=== PATIENT | male | born 1940 | race Caucasian/White ===

== ENCOUNTER 2018-05-27 10:43 | Inpatient (IN) | payer OTHER ==
[2018-05-27] VITALS (12 sets, daily range): BP systolic 113–162; BP diastolic 71–119; PULSE 81–102; RESP 16–28; Ht 170.2 cm; Wt 83.5 kg
[~2018-05-27] VITALS: Ht 170.2 cm; Wt 83.5 kg
--- NOTE | 2018-05-27 12:39 | ERD ---
ER Documentation Chief Complaint Chief Complaint PT HERE WITH SOB, SENT PER PMD FOR EVAL HPI 77-year-old male referred to the emergency department from his pest controller assistant for evaluation of a pericardial effusion. Patient was seen initially in an outside urgent care for shortness of breath where he had a chest x-ray done demonstrating a large heart. He followed up with a local pest controller assistant who demonstrated he had a significant pericardial effusion. He was then referred immediately to the emergency department for further evaluation. Upon arrival, he denies any fevers, chills or chest pain. He reports shortness of breath with dyspnea on exertion and a feeling of early fatigue recently. ROS All systems reviewed and are negative except as per history of present illness. PMhx/Soc History of Surgery: Yes (BACK SURGERY, HERNIA REPAIR) Hx Cardiac Disorders: Yes (HTN, CHOLESTEROL) Hx Psychiatric Problems: No Hx Miscellaneous Medical Probl: No Hx Alcohol Use: No Hx Substance Use: No Hx Tobacco Use: No Smoking Status: Former smoker Physical Exam Vitals Vital Signs Date Temp Pulse Resp B/P (MAP) Pulse Ox O2 O2 Flow FiO2 Time Delivery Rate 05/27/18 Nasal 2.0 11:16 Cannula 05/27/18 96.7 98 20 163/94 96 10:45 (117) Physical Exam GENERAL: The patient is well developed and appropriate for usual state of health in no apparent distress HEENT: Pupils equal, round, and reactive to light. EOMI. There is no scleral icterus. NECK: C-spine is soft and supple, there is no meningismus. There is no cervical lymphadenopathy. LUNGS: Clear to auscultation bilaterally. There are no rales, wheezes or rhonchi. HEART: Regular rate and rhythm, no murmurs, clicks, rubs or gallops. ABDOMEN: Soft, non-tender, non-distended. There are bowel sounds in all four quadrants. No rebound or guarding. EXTREMITIES: There is no peripheral cyanosis or edema. No focal swelling or erythema. NEURO: The patient moves all four extremities with 5/5 strength. Cranial nerves II - XII are intact. Normal gait. Alert and oriented SKIN: There is no apparent rash or petechiae. HEME/LYMPHATIC: There is no evidence of excessive bruising or lymphedema. PSYCHIATRIC: The patient does not appear anxious or depressed. Result Diagram: 05/27/18 1106 05/27/18 1106 Results 24 hrs Laboratory Tests Test 05/27/18 11:06 White Blood Count 8.0 10^3/ul Red Blood Count 4.26 10^6/ul Hemoglobin 11.9 g/dl Hematocrit 37.5 % Mean Corpuscular Volume 88.0 fl Mean Corpuscular Hemoglobin 27.9 pg Mean Corpuscular Hemoglobin Concent 31.7 g/dl Red Cell Distribution Width 13.8 % Platelet Count 544 10^3/UL Mean Platelet Volume 9.5 fl Immature Granulocytes % 0.600 % Neutrophils % 83.0 % Lymphocytes % 7.6 % Monocytes % 8.6 % Eosinophils % 0.0 % Basophils % 0.2 % Nucleated Red Blood Cells % 0.0 /100WBC Immature Granulocytes # 0.050 10^3/ul Neutrophils # 6.7 10^3/ul Lymphocytes # 0.6 10^3/ul Monocytes # 0.7 10^3/ul Eosinophils # 0.0 10^3/ul Basophils # 0.0 10^3/ul Nucleated Red Blood Cells # 0.0 10^3/ul Sodium Level 138 mmol/L Potassium Level 4.8 mmol/L Chloride Level 104 mmol/L Carbon Dioxide Level 21 mmol/L Anion Gap 13 Blood Urea Nitrogen 28 mg/dl Creatinine 1.21 mg/dl Est Glomerular Filtrat Rate mL/min mL/min Glucose Level 134 mg/dl Calcium Level 8.7 mg/dl Troponin I < 0.012 ng/ml Procedures/MDM Patient was taken to a room, seen and evaluated. Comfort measures were initiated. Diagnostic tests were ordered and reviewed. 3 LEAD RHYTHM STRIP: Normal sinus rhythm without ectopy EK lead EKG reviewed by myself: Normal Sinus Rhythm with what appears to be an early electrical alternans Normal [place] and intervals, low voltages No ST elevation, depression, or T wave inversion, nonspecific ST and T wave changes without ST elevation Impression: Consistent with the pericardial effusion RADIOLOGY: Reviewed with the radiologist CONSULTATION: Hospitalist was notified for admission. Cardiology consultation was at bedside REEVALUATION: Diagnostic tests were appreciated. Patient remained hemodynamic is stable without any indications of cardiac tamponade MEDICAL DECISION MAKIN-year-old male presents the emergency department with shortness of breath and a newly diagnosed pericardial effusion. Patient has no indications of hypotension or shock and appears to be appropriate for his inpatient bed at this time. Departure Diagnosis: Primary Impression: Pericardial effusion Condition: CARINE Calvillo May 27, 2018 12:39
[2018-05-27] MEDS ORDERED: FENTAnyl 50 MCG/ML VIAL ONE (12:53)
--- NOTE | 2018-05-27 12:53 | QN ---
Documentation Comment H Garima carlos . KAYDEN DUEÑAS May 27, 2018 12:53
[2018-05-27] MEDS ORDERED: SOD CHLORIDE 0.9% 1,000 ML ONE (12:57)
--- NOTE | 2018-05-27 12:59 | CONS ---
Assessment/Plan Assessment/Plan Hospital Course (Demo Recall) Pericardial effusion: large by echo with pre-tamponade physiology. Significant symptoms. ?viral pericarditis vs malignant at his age. Plan for diagnostic and therapeutic pericardiocentesis. 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 He had a prior CXR showing severe cardiomegaly and in my office EKG shows low voltage and echo showed a large pericardial effusion with pre-tamponade physiology. No clinical tamponade. He was referred for admission and pericardiocentesis. No known malignancy or recent viral infection.No chest pain per hPI Past Medical History per hPI Allergies: Coded Allergies: No Known Allergy (Unverified , 05/27/18) Social History Smoking Status: Former smoker Exam/Review of Systems Exam Vitals Vital Signs Date Temp Pulse Resp B/P (MAP) Pulse Ox O2 O2 Flow FiO2 Time Delivery Rate 05/27/18 Nasal 2.0 11:16 Cannula 05/27/18 96.7 98 20 163/94 96 10:45 (117) Constitutional: alert, oriented, distress (mild) Head: normocephalic, atraumatic Neck: supple, jvd (angle of jaw) Respiratory: crackles/rales, wheezing; No clear to auscultation Cardiovascular: regular rate and rhythm, edema (1+) Gastrointestinal: soft, non-tender; No distended Neurological: nl mental status, nl speech Results Result Diagram: 05/27/18 1106 05/27/18 1106 Results 24hrs Laboratory Tests Test 05/27/18 11:06 White Blood Count 8.0 Red Blood Count 4.26 L Hemoglobin 11.9 L Hematocrit 37.5 L Mean Corpuscular Volume 88.0 Mean Corpuscular Hemoglobin 27.9 L Mean Corpuscular Hemoglobin Concent 31.7 L Red Cell Distribution Width 13.8 Platelet Count 544 H Mean Platelet Volume 9.5 Immature Granulocytes % 0.600 H Neutrophils % 83.0 H Lymphocytes % 7.6 L Monocytes % 8.6 Eosinophils % 0.0 Basophils % 0.2 Nucleated Red Blood Cells % 0.0 Immature Granulocytes # 0.050 H Neutrophils # 6.7 Lymphocytes # 0.6 L Monocytes # 0.7 Eosinophils # 0.0 Basophils # 0.0 Nucleated Red Blood Cells # 0.0 Sodium Level 138 Potassium Level 4.8 Chloride Level 104 Carbon Dioxide Level 21 Anion Gap 13 Blood Urea Nitrogen 28 H Creatinine 1.21 Est Glomerular Filtrat Rate mL/min Glucose Level 134 Calcium Level 8.7 Troponin I < 0.012 JAYME CEVALLOS May 27, 2018 12:59
[2018-05-27] MEDS ORDERED: ALBUTEROL 0.083% (NEB) 2.5 MG/3 ML AMP HHN STA (13:11)
[2018-05-27] MEDS ORDERED: LIDOCAINE 1% (MDV) 20 ML INJ ONE (13:23)
[2018-05-27] MEDS ORDERED: MIDAZOLAM 1 MG/ML 2 ML INJ ONE (13:23)
[2018-05-27] MEDS ORDERED: NITROGLYCERIN (SL) 0.4 MG TAB SL PRN (13:30)
[2018-05-27] MEDS ORDERED: ACETAMINOPHEN 325 MG TAB PO PRN (13:30)
[2018-05-27] MEDS ORDERED: ONDANSETRON 4 MG INJ IV PRN (13:30)
[2018-05-27] MEDS ORDERED: LORAZEPAM 0.5 MG TAB PO PRN (13:30)
[2018-05-27] MEDS ORDERED: ZOLPIDEM 5 MG TAB PO PRN (13:30)
--- NOTE | 2018-05-27 13:42 | HP ---
DATE OF ADMISSION: 05/27/2018 INDICATIONS FOR EVALUATION: The patient is being admitted for placement of pericardial window for pericardial effusion. HISTORY OF PRESENTING COMPLAINT: Mr. Middleton is a very pleasant 77-year-old male with a past medical history of high blood pressure, prediabetes and GERD, who has been having worsening dyspnea on exertion, shortness of breath and cough and his family also notices voice changes over the last 3 weeks. The patient also has a history of asthma and actually feels like it is happening the bronchitis episodes right now. 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 He went into see the on site property manager yesterday, Dr. Humphries and then 2D echo was done at that time with concerns for pericardial effusion, so the patient was requested to come to the emergency room for placement of emergent pericardial window. The procedure is already scheduled today between 1:00 and 2:00 p.m. The patient is being admitted for this reason. He however denies fever. He has been having a lot of cough that is occasional productive of whitish sputum. He denies chest pain at this time. Denies passing out episodes. No extremity swelling. No dizziness. There is no abdominal pain, no nausea or vomiting. Last bowel movement was this morning without blood and was not black and per patient, it was normal. He also denies dysuria or hematuria. REVIEW OF SYSTEMS: A 12-point review of system was done. Pertinent findings are as noted above. HOME MEDICATIONS: The patient takes: 1. Omeprazole 20 mg daily. 2. Ranitidine 150 mg twice a day. 3. Amlodipine 10 mg p.o. daily. 4. Losartan 100 mg twice a day. 5. Allopurinol half a tablet 150 mg per day. 6. Vitamin D3 one tablet daily. 7. Currently, he is treating himself with prophylaxis antibiotics. SOCIAL HISTORY: The patient remotely smoked as a youth, but does not smoke cigarettes in more than 20 years. Denies alcohol or illicit drug use. FAMILY HISTORY: Noncontributory. PAST SURGICAL HISTORY: Includes back surgery as well as hernia repair. 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 PHYSICAL EXAMINATION VITAL SIGNS: Temperature 96.7, pulse is 98, respiratory rate 20, blood pressure 163/94, saturations are 96%. The patient is on oxygen via nasal cannula at 2 liters per minute. GENERAL: He is alert and oriented. Currently, he is in no distress. He does have coughing bouts; however during the evaluation, he is able to give me a full history. HEENT: Head is normocephalic. Pupils are equal, round and reactive. There is no conjunctival pallor, but I do have concern for mild scleral icterus. Otherwise mucous membranes are moist. Posterior pharynx clear of erythema or exudate. NECK: Supple, but seems to have mildly distended neck veins bilaterally, but there is no JVD. CHEST: He does have audible wheezing and also wheezing in the bases bilaterally. There has however had no crackles and I cannot fully ascertain any pericardial effusion. HEART: Sounds are S1 and S2. ABDOMEN: Soft, protuberant but nontender with normoactive bowel sounds. EXTREMITIES: There is no lower extremity edema. NEUROLOGIC: He is able to move all 4 extremities without deficit. SKIN: Devoid of rash or jaundice. PSYCHIATRIC: Cooperative with exam. LABORATORY VALUES: White count is normal, hemoglobin 11.9 with hypochromasia and platelet count is high at 544. He does have a neutrophil predominance. BMP and troponin levels are still pending. DIAGNOSTIC DATA: Chest x-ray has also been done, but the imaging and reports are also still pending at this time. ASSESSMENT: A 77-year-old male who was admitted after being referred from the cardiology's office as an outpatient concerning for pericardial window after he was diagnosed as outpatient with pericardial effusion. He is being managed as follows: 1. Shortness of breath with exertion likely secondary to multiple factors summarized below. 2. Pericardial effusion: Plan for pericardial window today, cause uncertain at this time. 3. Mild asthma exacerbation, rule out ongoing bronchitis. 4. Chronic hypertension with suboptimal control. 5. Prediabetes with last hemoglobin A1c per patient's report of 6.5. 6. History of gastroesophageal reflux disease. 7. Hypochromic microcytic anemia. 8. Thrombocytosis, likely reactive. 9. History of gout, on allopurinol. PLAN OF CARE: At this time, the patient will be further worked up as we planned with pericardial window. As mentioned earlier, cardiology has scheduled this procedure for today between 1:00 and 2:00 p.m. The patient will be kept n.p.o. for now. We will follow up on chest x-ray and follow up on the rest of his labs. We will give bronchodilator therapy and consider continuing his antibiotics from home for possible bronchitis. We will also resume rest of his home medications and titrate in-house for better control. He will be placed on an 1800-calorie diet and sliding scale insulin . Further interventions will depend on his overall clinical course. It has been discussed with the patient in details. Questions have been answered. I have also spoken extensively with the family. For further clarification and information, please review the patient's chart. Dictated By: KAYDEN DUEÑAS MD BA/NTS Conf#: [id number] DID#: [id number] CC: CARINE WORKMAN;*EndCC* MTDD
--- NOTE | 2018-05-27 14:44 | OPR ---
Date/Time of Note Date/Time of Note DATE: 05/27/18 TIME: 14:34 Operative Report Preoperative Diagnosis pericardial effusion/tamponade Postoperative Diagnosis same Operation/Procedure Performed Pericardiocentesis Surgeon see signature line Winder Tender none Anesthesia Type: moderate sedation Estimated Blood Loss: minimal Transfusion none Specimen 900 mL serosanguineous fluid to be sent for studies Grafts/Implants none Complications none Procedure Description Pericardiocentesis: After informed consent, the patient was prepped and draped per usual. 5 mL of lidocaine was infused into the left chest wall. Under ultrasound guidance, the needle was inserted under back pressure. Once fluid was obtained, the J wire was advanced. Location was confirmed by both echo and fluoroscopy. Next the tract was dilated and the pigtail catheter inserted. 900 mL serosanguinous fluid was obtained and sent for appropriate studies. Echo showed significant improvement in the amount of fluid. The drain was sutured in place. JAYME CEVALLOS May 27, 2018 14:44
--- NOTE | 2018-05-27 14:57 | RADRPT ---
Echocardiogram Report Patient Name: MJ GUOPatient ID: [id number] : [id number] (77y 8m)Study Date: 05/27/2018 1:17:18 PM Gender: MAccession #: [id number] Tech: Mukul Fink RDCS Location: [facility] Ref.Physician: MARCUS HUMPHRIES Height(Cm): BSA: Weight(Kg): Quality: AdequateAccount #: Procedures: Echocardiographic Report: Transthoracic echocardiogram examination. Indications: Pericardial Effusion. Findings: Left Ventricle: The left ventricular ejection fraction is visually estimated at 65 %. Pericardium: Trivial effusion. IVC: Dilated inferior vena cava with no respiratory collapse. Conclusions: Pre-pericardiocentesis, large pericardial effusion. Wire in proper location during. Agitated saline confirms proper placement. Post drainage, small posterior effusion. The left ventricular ejection fraction is visually estimated at 65 %. Electronically Signed By: Marcus Humphries 2018-05-27 14:56:15 PST
--- NOTE | 2018-05-27 15:02 | RADRPT ---
Echocardiogram Report Patient Name: MJ GUOPatient ID: [id number] : [id number] (77y 8m)Study Date: 05/27/2018 12:40:33 PM Gender: MAccession #: [id number] Tech: Silverio Deleon [facility] Location: [facility] Ref.Physician: JAYME HUMPHRIES Height(Cm): BSA: Weight(Kg): Quality: AdequateAccount #: Procedures: Echocardiographic Report: Transthoracic echocardiogram with complete 2D, M-Mode, and doppler examination. Indications: Pericardial Effusion. Measurements: 2D/M Mode Doppler Measurement Value Normal Range Measurement Value Normal Range LVIDd 2D 5.2 [ 4.2 - 5.8 ] cm AV Peak Derek 1.1 [ 100.0 - 170.0 ] cm/sec LVIDs 2D 3.5 [ 2.5 - 4.0 ] cm AV Peak PG 5.0 [ 2.0 - 9.0 ] mmHg LVPWd 2D 1.1 [ 0.6 - 1.0 ] cm LVOT Peak Derek 1.0 [ 70.0 - 110.0 ] cm/sec IVSd 2D 1.4 [ 0.6 - 1.0 ] cm LVOT Peak PG 4.0 [ 2.0 - 6.0 ] mmHg IVS/LVPW 2D 1.3 ratio MV E Peak Derek 0.6 [ 60.0 - 130.0 ] cm/sec AoR Diam 2D 2.9 [ 2.6 - 3.4 ] cm MV A Peak Derek 0.9 [ 100.0 - 120.0 ] cm/sec LA/Ao 2D 2 ratio MV E/A 0.7 [ 0.8 - 1.5 ] ratio LA Dimen 2D 4.4 [ 3.0 - 4.0 ] cm MV Decel Time 173 [ 104 - 258 ] msec Lat E` Derek 0.1 [ 10.0 - 15.0 ] cm/sec Med E` Derek 0.0 cm/sec MV E/A 0.7 [ 0.8 - 1.5 ] ratio TR Peak Derek 2.7 [ 100.0 - 280.0 ] cm/sec TR Peak PG 30.0 mmHg RVSP 38.0 [ 10.0 - 36.0 ] mmHg Findings: Left Ventricle: Normal left ventricular systolic function. Normal left ventricular cavity size. Normal left ventricular wall thickness. Ejection fraction is visually estimated at 60 %. Tissue Doppler/Mitral Doppler indices are consistent with impaired relaxation (Stage I diastolic dysfunction). Right Ventricle: Normal right ventricular systolic function. Mild enlargement of right ventricle. Left Atrium: There is mild enlargement of left atrium. Right Atrium: The right atrium is normal in size. Mitral Valve: Mild mitral leaflet calcification. Mild mitral annular calcification. Trace mitral regurgitation. Aortic Valve: Normal appearance of the aortic valve. No significant aortic stenosis or insufficiency. Tricuspid Valve: Normal appearance of the tricuspid valve. Estimated peak PA systolic pressure 45 mmHg. There is mild tricuspid regurgitation. Pulmonic Valve: Pulmonic valve not well visualized. Pericardium: Large pericardial effusion. Early right ventricular diastolic collapse consistent with tamponade. Aorta: Normal aortic root. IVC: Dilated IVC without respiratory collapse consistent with elevated right atrial pressure. Conclusions: Large pericardial effusion. Early right ventricular diastolic collapse consistent with tamponade. Normal left ventricular systolic function. Normal left ventricular cavity size. Normal left ventricular wall thickness. Ejection fraction is visually estimated at 60 %. Tissue Doppler/Mitral Doppler indices are consistent with impaired relaxation (Stage I diastolic dysfunction). No significant valvular stenosis or regurgitation seen. Estimated peak PA systolic pressure 45 mmHg. Dilated IVC without respiratory collapse consistent with elevated right atrial pressure. Electronically Signed By: Jamye Humphries 2018-05-27 15:02:00 PST
[2018-05-27] MEDS: CEFTRIAXONE 1 GM/50 ML (PMX) 50 ML IVPB SCH (16:32)
[2018-05-27] MEDS: DOCUSATE SODIUM 100 MG CAP PO SCH (16:32)
[2018-05-27] MEDS: AZITHROMYCIN 500MG/NS (PMX) 250 ML IVPB SCH (16:32)
[2018-05-27] MEDS: morphine 2 MG INJ IV PRN ×2 (18:14→23:21)
[2018-05-27] MEDS: COLCHICINE 0.6 MG TAB PO SCH (21:04)
[2018-05-27] MEDS ORDERED: IODIXANOL LOCM 100 ML BTL ONE (22:06)
[2018-05-27] MEDS ORDERED: SOD CHLORIDE 0.9% 100 ML ONE (22:06)
[2018-05-27] MEDS ORDERED: ENALAPRILAT 1.25 MG INJ IV PRN (23:00)
[2018-05-27] MEDS: ALBUTEROL 0.083% (NEB) 2.5 MG/3 ML AMP HHN PRN (23:02)
[2018-05-28] VITALS (24 sets, daily range): BP systolic 99–165; BP diastolic 66–134; PULSE 75–116; RESP 19–31
[2018-05-28] MEDS: DOCUSATE SODIUM 100 MG CAP PO SCH ×3 (01:30→20:56)
[2018-05-28] MEDS: ALBUTEROL 0.083% (NEB) 2.5 MG/3 ML AMP HHN PRN ×2 (01:44→15:25)
[2018-05-28] MEDS ORDERED: METHYLPREDNISOLONE 40 MG INJ IV SCH (06:00)
[2018-05-28] MEDS: LOSARTAN 50 MG TAB PO SCH (08:39)
[2018-05-28] MEDS: COLCHICINE 0.6 MG TAB PO SCH ×2 (08:39→20:48)
[2018-05-28] MEDS: CHOLECALCIFEROL 1,000 UNIT TAB PO SCH (08:39)
[2018-05-28] MEDS: AMLODIPINE 10 MG TAB PO SCH (08:39)
[2018-05-28] MEDS ORDERED: ASPIRIN 81 MG TAB PO SCH (09:00)
[2018-05-28] MEDS ORDERED: INFLUENZA VIRUS VACCINE 0.5 ML (DISPENSING) IM* ONE (09:00)
--- NOTE | 2018-05-28 09:20 | PN ---
Date/Time of Note Date/Time of Note DATE: 05/28/18 TIME: 09:07 Assessment/Plan VTE Prophylaxis Risk score (from Ns)>0 risk: 9 SCD applied (from Ns): Yes Pharmacological prophylaxis: NA/contraindicated Pharm contraindication: surgical contra Lines/Catheters IV [facility]ter Type (from [facility]): Peripheral IV Urinary Cath still in place: No Assessment/Plan Hospital Course S: observed in ICU, no new complaints, SOB imporoved, was eating breakfast without problems O : General: A&O x3, answering questions appropriately, no distress HEENT: NC/ AT. PERRL. EOM intact Neck: supple Chest : clean linear dressing L chest wall with drain to almost empty bag with minimal blood CVS: S1, S2, RRR. no murmurs. Lungs: diminished on the L side, but no more wheezing Abd: soft, nontender, +BS Ext: moving all extremities, no edema skin: no rashes assessment and plan: A 77-year-old male who was admitted after being referred from the cardiology's office as an outpatient for management of pericardial effusion after he had presented with SOB on exertion and at rest He is being managed as follows: 1. Shortness of breath with exertion likely secondary to multiple factors summarized below. -improved ? 2. Pericardial effusion / tamponade 2./2 pericarditis? subacute vs chronic ?: -s/p pericardial window 05/28/18 -cause still under evaluation, TSH wnl, patient did not have significant chest pain, no fever or EKG changes -fluid sent to lab for analysis and cytology -continues on colchine BID -chest CT also pending 3. Mild asthma exacerbation, rule out ongoing bronchitis. -improving -has been requiring PRN bronchodilator, will give scheduled course and add steroids 4. Chronic hypertension -fair control on current regimen -monitor and titrate as indicated 5. Prediabetes with last hemoglobin A1c 6.8. -continue carb controlled diet -add SSI 6. History of gastroesophageal reflux disease. -continue home meds 7. Hypochromic microcytic anemia. -monitoring 8. Thrombocytosis, likely reactive. -improved 9. History of gout, on allopurinol. -uric acid <7, -continue home meds Result Diagram: 05/28/18 0441 05/28/18 0441 Results 24hrs Laboratory Tests Test 3/6/19 11:06 05/27/18 14:00 05/28/18 04:41 White Blood Count 8.0 8.3 Red Blood Count 4.26 L 4.83 Hemoglobin 11.9 L 13.5 L Hematocrit 37.5 L 41.2 L Mean Corpuscular Volume 88.0 85.3 Mean Corpuscular Hemoglobin 27.9 L 28.0 L Mean Corpuscular 31.7 L 32.8 Hemoglobin Concent Red Cell Distribution Width 13.8 13.7 Platelet Count 544 H 409 # Mean Platelet Volume 9.5 10.7 H Immature Granulocytes % 0.600 H 0.700 H Neutrophils % 83.0 H 78.1 H Lymphocytes % 7.6 L 9.8 L Monocytes % 8.6 10.1 Eosinophils % 0.0 0.6 Basophils % 0.2 0.7 Nucleated Red Blood Cells % 0.0 0.0 Immature Granulocytes # 0.050 H 0.060 H Neutrophils # 6.7 6.5 Lymphocytes # 0.6 L 0.8 Monocytes # 0.7 0.8 Eosinophils # 0.0 0.1 Basophils # 0.0 0.1 Nucleated Red Blood Cells # 0.0 0.0 Sodium Level 138 138 Potassium Level 4.8 4.0 Chloride Level 104 104 Carbon Dioxide Level 21 25 Anion Gap 13 9 Blood Urea Nitrogen 28 H 20 Creatinine 1.21 1.07 Est Glomerular Filtrat Rate mL/min Glucose Level 134 154 Uric Acid 6.5 Calcium Level 8.7 8.5 Troponin I < 0.012 Body Fluid Type PERICARDIAL FLUID Body Fluid Volume 1000.0 Body Fluid Color RED Body Fluid Appearance BLOODY Body Fluid WBC 2042 Body Fluid RBC (Auto) 2907939 Body Fluid Polynuclear WBCs (%) 33.6 Body Fluid Mononuclear Cells % 66.4 Auto Body Fluid Glucose 104 Body Fluid Total Protein 6.2 Body Fluid Lactate Dehydrogenase 7352 Hemoglobin A1c 6.8 H Magnesium Level 2.1 Triglycerides Level 135 Cholesterol Level 144 LDL Cholesterol, Calculated 95 HDL Cholesterol 22 L Cholesterol/HDL Ratio 6.5 Vitamin D 1,25-Dihydroxy 50.3 Thyroid Stimulating Hormone (TSH) 2.050 Exam/Review of Systems Exam Vitals Vital Signs Date Temp Pulse Resp B/P (MAP) Pulse Ox O2 O2 Flow FiO2 Time Delivery Rate 05/28/18 87 23 152/93 98 Nasal 06:00 (112) Cannula 05/28/18 98.9 05:00 3/7/19 2.0 28 02:24 Intake and Output 05/27/18 05/27/18 05/28/18 1515:00 23:00 07:00 IntakeIntake Total 50 ml 500 ml 100 ml OutputOutput Total 400 ml 800 ml 1200 ml BalanceBalance -350 ml -300 ml -1100 ml Results Results 24hrs Laboratory Tests Test 05/27/18 11:06 05/27/18 14:00 05/28/18 04:41 White Blood Count 8.0 8.3 Red Blood Count 4.26 L 4.83 Hemoglobin 11.9 L 13.5 L Hematocrit 37.5 L 41.2 L Mean Corpuscular Volume 88.0 85.3 Mean Corpuscular Hemoglobin 27.9 L 28.0 L Mean Corpuscular 31.7 L 32.8 Hemoglobin Concent Red Cell Distribution Width 13.8 13.7 Platelet Count 544 H 409 # Mean Platelet Volume 9.5 10.7 H Immature Granulocytes % 0.600 H 0.700 H Neutrophils % 83.0 H 78.1 H Lymphocytes % 7.6 L 9.8 L Monocytes % 8.6 10.1 Eosinophils % 0.0 0.6 Basophils % 0.2 0.7 Nucleated Red Blood Cells % 0.0 0.0 Immature Granulocytes # 0.050 H 0.060 H Neutrophils # 6.7 6.5 Lymphocytes # 0.6 L 0.8 Monocytes # 0.7 0.8 Eosinophils # 0.0 0.1 Basophils # 0.0 0.1 Nucleated Red Blood Cells # 0.0 0.0 Sodium Level 138 138 Potassium Level 4.8 4.0 Chloride Level 104 104 Carbon Dioxide Level 21 25 Anion Gap 13 9 Blood Urea Nitrogen 28 H 20 Creatinine 1.21 1.07 Est Glomerular Filtrat Rate mL/min Glucose Level 134 154 Uric Acid 6.5 Calcium Level 8.7 8.5 Troponin I < 0.012 Body Fluid Type PERICARDIAL FLUID Body Fluid Volume 1000.0 Body Fluid Color RED Body Fluid Appearance BLOODY Body Fluid WBC 2042 Body Fluid RBC (Auto) 3401710 Body Fluid Polynuclear WBCs (%) 33.6 Body Fluid Mononuclear Cells % 66.4 Auto Body Fluid Glucose 104 Body Fluid Total Protein 6.2 Body Fluid Lactate Dehydrogenase 7352 Hemoglobin A1c 6.8 H Magnesium Level 2.1 Triglycerides Level 135 Cholesterol Level 144 LDL Cholesterol, Calculated 95 HDL Cholesterol 22 L Cholesterol/HDL Ratio 6.5 Vitamin D 1,25-Dihydroxy 50.3 Thyroid Stimulating Hormone (TSH) 2.050 Medications Medication Current Medications Colchicine (Colchicine) 0.6 mg BID PO Last administered on 05/28/18 08:39; Admin Dose 0.6 MG; Start 05/27/18 at 21:00 Lorazepam (Ativan) 0.5 mg Q8H PRN PO .ANXIETY; Start 05/27/18 at 13:30 Ondansetron HCl (Zofran Inj) 4 mg Q6H PRN IV NAUSEA/VOMITING; Start 05/27/18 at 13:30 Nitroglycerin (Nitroglycerin (Sl Tab) 0.4 Mg) 1 tab Q5M PRN SL .CHEST PAIN; Start 05/27/18 at 13:30 Acetaminophen (Tylenol Tab) 650 mg Q6H PRN PO .PAIN 1-3 OR TEMP Last administered on 05/27/18 17:46; Admin Dose 650 MG; Start 05/27/18 at 13:30 Zolpidem Tartrate (Ambien) 5 mg QHS PRN PO .INSOMNIA; Start 05/27/18 at 13:30 Docusate Sodium (Colace) 100 mg Q12H PO Last administered on 05/27/18 16:32; Admin Dose 100 MG; Start 05/27/18 at 13:30 Ceftriaxone Sodium 50 ml @ 100 mls/hr Q24H IVPB Last administered on 05/27/18 16:32; Admin Dose 100 MLS/HR; Start 05/27/18 at 13:30 Azithromycin 250 ml @ 250 mls/hr Q24H IVPB Last administered on 05/27/18 16:32; Admin Dose 250 MLS/HR; Start 05/27/18 at 13:30 Albuterol (Proventil 0.083% (Neb)) 1.25 mg Q2H RESP THERAPY PRN HHN sob, wheezing Last administered on 05/28/18 01:44; Admin Dose 1.25 MG; Start 05/27/18 at 13:30 Amlodipine Besylate (Norvasc) 10 mg DAILY PO Last administered on 05/28/18 08:39; Admin Dose 10 MG; Start 05/28/18 at 09:00 Losartan Potassium (Cozaar) 100 mg DAILY PO Last administered on 05/28/18 08:39; Admin Dose 100 MG; Start 05/28/18 at 09:00 Cholecalciferol (Vitamin D) 1,000 unit DAILY PO Last administered on 05/28/18 08:39; Admin Dose 1,000 UNIT; Start 05/28/18 at 09:00 Morphine Sulfate (morphine) 2 mg Q4H PRN IV SEVERE PAIN LEVEL 7-10 Last administered on 05/27/18at 23:21; Admin Dose 2 MG; Start 05/27/18 at 18:00 Enalaprilat (Vasotec Iv) 1.25 mg Q6H PRN IV SBP>170; Start 05/27/18 at 23:00 Methylprednisolone Sodium Succinate (Solu-Medrol) 30 mg Q8 IV Last administered on 05/28/18at 05:55; Admin Dose 30 MG; Start 05/28/18 at 06:00 KAYDEN DUEÑAS May 28, 2018 09:17
[2018-05-28] MEDS ORDERED: DEXTROSE 50% 50 ML SYRINGE IV PRN ×2 (09:30)
[2018-05-28] MEDS ORDERED: GLUCOSE GEL 15 GRAM TUBE PO PRN ×2 (09:30)
[2018-05-28] MEDS ORDERED: predniSONE 20 MG TAB PO ONE (09:30)
[2018-05-28] MEDS ORDERED: GLUCAGON 1 MG INJ IM PRN (09:30)
[2018-05-28] MEDS ORDERED: GLUCOSE GEL 15 GRAM TUBE BUCCAL PRN (09:30)
[2018-05-28] MEDS: METOPROLOL 50 MG TAB PO SCH ×2 (10:46→20:49)
[2018-05-28] MEDS ORDERED: morphine LIQ (10 MG/5 ML) CUP PO PRN (11:00)
[2018-05-28] MEDS: INSULIN ASPART [NOVOLOG] 3 ML PEN SC SCH ×3 (12:48→20:46)
--- NOTE | 2018-05-28 12:50 | CONS ---
Assessment/Plan Assessment/Plan Hospital Course (Demo Recall) Pericardial effusion: large by echo with pre-tamponade physiology. Significant symptoms. ?viral pericarditis vs malignant at his age. s/p diagnostic and therapeutic pericardiocentesis with 900mL removed. No drain output but still with effusion on CT Acute diastolic CHF: still SOB and with elevated JVP even after pericardiocentesis. Will diurese New onset atrial fibrillation: likely from combination of above but also may be from irritation of pericardial drain. Will consider detention anticoagulation Abdominal distension: had BM today. Unclear etiology HTN Asthma -keep drain in -check echo -CXR, KUB, abd ultrasound -lasix 40mg IV TID -metoprolol 50mg PO BID -losartan 100mg -amlodipine 10mg -colchicine 0.6mg BID -f/u fluid studies Consultation Date/Type/Reason Admit Date/Time May 27, 2018 at 12:36 Initial Consult Date 05/27/18 Type of Consult Cardiology Requesting Provider: CARINE WORKMAN Date/Time of Note DATE: 05/28/18 TIME: 12:44 24 HR Interval Summary Free Text/Dictation s/p pericardiocentesis with 900mL removed. No output from drain. CT noted "large effusion" still but looks like its mostly lateral. Still with SOB. Went into afib today with RVR. Now rates controlled on metoprolol. Exam/Review of Systems Exam Vitals Vital Signs Date Temp Pulse Resp B/P (MAP) Pulse Ox O2 O2 Flow FiO2 Time Delivery Rate 05/28/18 101 27 164/110 95 Room Air 11:00 (128) 05/28/18 98.9 08:00 05/28/18 2.0 28 02:24 Intake and Output 05/27/18 05/27/18 05/28/18 1515:00 23:00 07:00 IntakeIntake Total 50 ml 500 ml 100 ml OutputOutput Total 400 ml 800 ml 1200 ml BalanceBalance -350 ml -300 ml -1100 ml Constitutional: alert, oriented Head: normocephalic, atraumatic Neck: supple, jvd (10cm) Respiratory: crackles/rales (mid lungs ), wheezing (mild); No clear to auscultation Cardiovascular: edema (1+); No regular rate and rhythm (IRIR), No systolic murmur Gastrointestinal: soft, non-tender, distended (distended) Neurological: nl mental status, nl speech Results Result Diagram: 05/28/18 0441 05/28/18 0441 Results 24hrs Laboratory Tests Test 05/27/18 14:00 05/28/18 04:41 05/28/18 11:59 Body Fluid Type PERICARDIAL FLUID Body Fluid Volume 1000.0 Body Fluid Color RED Body Fluid Appearance BLOODY Body Fluid WBC 2042 Body Fluid RBC (Auto) 3748422 Body Fluid Polynuclear WBCs (%) 33.6 Body Fluid Mononuclear Cells % 66.4 Auto Body Fluid Glucose 104 Body Fluid Total Protein 6.2 Body Fluid Lactate Dehydrogenase 7352 White Blood Count 8.3 Red Blood Count 4.83 Hemoglobin 13.5 L Hematocrit 41.2 L Mean Corpuscular Volume 85.3 Mean Corpuscular Hemoglobin 28.0 L Mean Corpuscular 32.8 Hemoglobin Concent Red Cell Distribution Width 13.7 Platelet Count 409 # Mean Platelet Volume 10.7 H Immature Granulocytes % 0.700 H Neutrophils % 78.1 H Lymphocytes % 9.8 L Monocytes % 10.1 Eosinophils % 0.6 Basophils % 0.7 Nucleated Red Blood Cells % 0.0 Immature Granulocytes # 0.060 H Neutrophils # 6.5 Lymphocytes # 0.8 Monocytes # 0.8 Eosinophils # 0.1 Basophils # 0.1 Nucleated Red Blood Cells # 0.0 Sodium Level 138 Potassium Level 4.0 Chloride Level 104 Carbon Dioxide Level 25 Anion Gap 9 Blood Urea Nitrogen 20 Creatinine 1.07 Est Glomerular Filtrat Rate mL/min Glucose Level 154 Hemoglobin A1c 6.8 H Calcium Level 8.5 Magnesium Level 2.1 Triglycerides Level 135 Cholesterol Level 144 LDL Cholesterol, Calculated 95 HDL Cholesterol 22 L Cholesterol/HDL Ratio 6.5 Vitamin D 1,25-Dihydroxy 50.3 Thyroid Stimulating Hormone (TSH) 2.050 Bedside Glucose 214 Medications Medication Current Medications Colchicine (Colchicine) 0.6 mg BID PO Last administered on 05/28/18at 08:39; Admin Dose 0.6 MG; Start 05/27/18 at 21:00 Lorazepam (Ativan) 0.5 mg Q8H PRN PO .ANXIETY; Start 05/27/18 at 13:30 Ondansetron HCl (Zofran Inj) 4 mg Q6H PRN IV NAUSEA/VOMITING; Start 05/27/18 at 13:30 Nitroglycerin (Nitroglycerin (Sl Tab) 0.4 Mg) 1 tab Q5M PRN SL .CHEST PAIN; Start 05/27/18 at 13:30 Acetaminophen (Tylenol Tab) 650 mg Q6H PRN PO .PAIN 1-3 OR TEMP Last adminis tered on 05/27/18 17:46; Admin Dose 650 MG; Start 05/27/18 at 13:30 Zolpidem Tartrate (Ambien) 5 mg QHS PRN PO .INSOMNIA; Start 05/27/18 at 13:30 Docusate Sodium (Colace) 100 mg Q12H PO Last administered on 05/27/18 16:32; Admin Dose 100 MG; Start 05/27/18 at 13:30 Ceftriaxone Sodium 50 ml @ 100 mls/hr Q24H IVPB Last administered on 05/27/18 16:32; Admin Dose 100 MLS/HR; Start 05/27/18 at 13:30 Azithromycin 250 ml @ 250 mls/hr Q24H IVPB Last administered on 05/27/18 16:32; Admin Dose 250 MLS/HR; Start 05/27/18 at 13:30 Albuterol (Proventil 0.083% (Neb)) 1.25 mg Q2H RESP THERAPY PRN HHN sob, wheezing Last administered on 05/28/18 01:44; Admin Dose 1.25 MG; Start 05/27/18 at 13:30 Amlodipine Besylate (Norvasc) 10 mg DAILY PO Last administered on 05/28/18 08:39; Admin Dose 10 MG; Start 05/28/18 at 09:00 Losartan Potassium (Cozaar) 100 mg DAILY PO Last administered on 05/28/18 08:39; Admin Dose 100 MG; Start 05/28/18 at 09:00 Cholecalciferol (Vitamin D) 1,000 unit DAILY PO Last administered on 05/28/18 08:39; Admin Dose 1,000 UNIT; Start 05/28/18 at 09:00 Enalaprilat (Vasotec Iv) 1.25 mg Q6H PRN IV SBP>170; Start 05/27/18 at 23:00 Insulin Aspart (Novolog Insulin Pen) NOVOLOG *MILD* ALGORITHM WITH MEALS BEDTIME SC ; Start 05/28/18 at 11:30 Prednisone (Prednisone) 50 mg ONCE ONCE PO ; Start 05/29/18 at 09:00; Stop 05/29/18 at 09:01 Prednisone (Prednisone) 40 mg ONCE ONCE PO ; Start 05/30/18 at 09:00; Stop 05/30/18 at 09:01 Prednisone (Prednisone) 30 mg ONCE ONCE PO ; Start 05/31/18 at 09:00; Stop 05/31/18 at 09:01 Prednisone (Prednisone) 20 mg ONCE ONCE PO ; Start 06/01/18 at 09:00; Stop 06/01/18 at 09:01 Prednisone (Prednisone) 10 mg ONCE ONCE PO ; Start 06/02/18 at 09:00; Stop 06/02/18 at 09:01 Miscellaneous Information 1 ea NOTE XX ; Start 05/28/18 at 09:30 Glucose (Glutose) 15 gm Q15M PRN PO DECREASED GLUCOSE; Start 05/28/18 at 09:30 Glucose (Glutose) 22.5 gm Q15M PRN PO DECREASED GLUCOSE; Start 05/28/18 at 09:30 Dextrose (D50w Syringe) 25 ml Q15M PRN IV DECREASED GLUCOSE; Start 05/28/18 at 09:30 Dextrose (D50w Syringe) 50 ml Q15M PRN IV DECREASED GLUCOSE; Start 05/28/18 at 09:30 Glucagon (Glucagen) 1 mg Q15M PRN IM DECREASED GLUCOSE; Start 05/28/18 at 09:30 Glucose (Glutose) 15 gm Q15M PRN BUCCAL DECREASED GLUCOSE; Start 05/28/18 at 09:30 Metoprolol Tartrate (Lopressor) 50 mg BID PO Last administered on 05/28/18at 10:46; Admin Dose 50 MG; Start 05/28/18 at 11:00 Morphine Sulfate (morphine) 6 mg Q4H PRN PO SEVERE PAIN LEVEL 7-10; Start 05/28/18 at 11:00 JAYME CEVALLOS May 28, 2018 12:50
[2018-05-28] MEDS ORDERED: FUROSEMIDE 40 MG TAB GTB SCH (13:00)
[2018-05-28] MEDS: AZITHROMYCIN 500MG/NS (PMX) 250 ML IVPB SCH (13:37)
[2018-05-28] MEDS: CEFTRIAXONE 1 GM/50 ML (PMX) 50 ML IVPB SCH (13:37)
--- NOTE | 2018-05-28 15:12 | RADRPT ---
Echocardiogram Report Patient Name: MJ GUOPatient ID: [id number] : 0 (77y 8m)Study Date: 05/28/2018 1:16:38 PM Gender: MAccession #: [id number] Tech: Silverio Deleon [facility] Location: [address] Ref.Physician: MARCUS HUMPHRIES Height(Cm): BSA: Weight(Kg): Quality: AdequateAccount #: Procedures: Echocardiographic Report: Transthoracic echocardiogram with complete 2D, M-Mode, and doppler examination. Indications: F/U pericardial effusion. Findings: Left Ventricle: Normal left ventricular systolic function. Normal left ventricular cavity size. Left ventricular wall thickness upper limits of normal. Ejection fraction is visually estimated at 60 %. Right Ventricle: Normal right ventricular size. Normal right ventricular systolic function. Left Atrium: The left atrium is normal in size. Right Atrium: The right atrium is normal in size. Mitral Valve: Normal appearance of the mitral valve. Aortic Valve: Normal appearance of the aortic valve. Tricuspid Valve: Normal appearance of the tricuspid valve. Pericardium: Small-moderate pericardial effusion. Anterior and apical effusion has completely resolved. There is still a moderate effusion posterior and lateral as well as around the right atrium. No RV collapse and RA pressure has improved. Aorta: Normal aortic root. IVC: Dilated IVC with respiratory collapse consistent with elevated right atrial pressure. Conclusions: Small-moderate pericardial effusion. Anterior and apical effusion has completely resolved. There is still a moderate effusion posterior and lateral as well as around the right atrium. No RV collapse and RA pressure has improved. Dilated IVC with respiratory collapse consistent with elevated right atrial pressure. Electronically Signed By: Marcus Humphries 2018-05-28 15:11:39 PST
[2018-05-28] MEDS: FUROSEMIDE 40 MG INJ IV SCH (20:47)
[2018-05-29] VITALS (22 sets, daily range): BP systolic 114–147; BP diastolic 54–99; PULSE 70–97; RESP 13–25
[2018-05-29] MEDS: FUROSEMIDE 40 MG INJ IV SCH (06:16)
[2018-05-29] MEDS: INSULIN ASPART [NOVOLOG] 3 ML PEN SC SCH ×4 (07:35→20:51)
[2018-05-29] MEDS ORDERED: predniSONE 50 MG TAB PO ONE (09:00)
[2018-05-29] MEDS: CHOLECALCIFEROL 1,000 UNIT TAB PO SCH (09:01)
[2018-05-29] MEDS: COLCHICINE 0.6 MG TAB PO SCH ×2 (09:01→20:51)
[2018-05-29] MEDS: AMLODIPINE 10 MG TAB PO SCH (09:02)
[2018-05-29] MEDS: METOPROLOL 50 MG TAB PO SCH ×2 (09:02→20:52)
[2018-05-29] MEDS: LOSARTAN 50 MG TAB PO SCH (09:02)
--- NOTE | 2018-05-29 10:11 | PN ---
Date/Time of Note Date/Time of Note DATE: 05/29/18 TIME: 10:00 Assessment/Plan VTE Prophylaxis Risk score (from Nsg)>0 risk: 5 SCD applied (from Nsg): Yes Lines/Catheters IV Catheter Type (from Nrsg): Saline Lock Urinary Cath still in place: No Assessment/Plan Hospital Course S: O : General: A&O x3, answering questions appropriately, no distress HEENT: NC/ AT. PERRL. EOM intact Neck: supple Chest : clean linear dressing L chest wall with drain to almost empty bag with minimal blood CVS: S1, S2, RRR. no murmurs. Lungs: diminished on the L side, but no more wheezing Abd: soft, nontender, +BS Ext: moving all extremities, no edema skin: no rashes assessment and plan: A 77-year-old male who was admitted after being referred from the cardiology's office as an outpatient for management of pericardial effusion after he had presented with SOB on exertion and at rest He is being managed as follows: 1. Shortness of breath with exertion likely secondary to multiple factors summarized below. -improved 2. Large pericardial effusion with pericardial tamponade -Status post pericardial window placement and pericardial drain in place, done May 27, 2018 -CT however still shows large effusion, Mass-effect also noted on right atrium also with Right heart failure and Pulmonary hypertension -Fluid cultures all remain negative so far , pathology also still pending -still with little or no drainage from the pericardial drain -autoimmune screen also still pending as well -next steps per cardiology, await recommendations 3. Bilateral small effusions with multifocal atelectasis rule out underlying pneumonia -empiric abx as patient is symptomatic 4.Mild asthma exacerbation -continue steroids and bronchodilator therapy 5. Prediabetic -Glycemic control suboptimal due to steroid therapy 6. 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 -urology consult 7. Low HDL -patient also has evidence of atherosclerosis on imaging so will start low dose statin 8. Chronic hypertension with fair control on current regimen -fair control on current regimen -monitor and titrate as indicated 9. Diffuse fatty liver 10. History of gastroesophageal reflux disease. -continue home meds 11. Hypochromic microcytic anemia. -monitoring 12. History of gout, on allopurinol. -uric acid <7, -continue home meds Dispo: see #2 Result Diagram: 3/8/19 0815 05/28/18 0441 Results 24hrs Laboratory Tests Test 05/28/18 11:59 05/28/18 17:39 05/28/18 20:45 05/29/18 08:15 Bedside Glucose 214 144 174 White Blood Count 13.6 #H Red Blood Count 5.10 Hemoglobin 14.1 Hematocrit 43.4 Mean Corpuscular Volume 85.1 Mean Corpuscular 27.6 L Hemoglobin Mean Corpuscular 32.5 Hemoglobin Concent Red Cell Distribution 13.3 Width Platelet Count 654 #H Mean Platelet Volume 9.2 Immature Granulocytes % 0.700 H Neutrophils % 83.8 H Lymphocytes % 7.1 L Monocytes % 8.0 Eosinophils % 0.1 Basophils % 0.3 Nucleated Red Blood 0.0 Cells % Immature Granulocytes # 0.100 H Neutrophils # 11.4 H Lymphocytes # 1.0 Monocytes # 1.1 H Eosinophils # 0.0 Basophils # 0.0 Nucleated Red Blood 0.0 Cells # Test 05/29/18 08:59 Bedside Glucose 119 Exam/Review of Systems Exam Vitals Vital Signs Date Temp Pulse Resp B/P (MAP) Pulse Ox O2 O2 Flow FiO2 Time Delivery Rate 05/29/18 98.0 78 21 147/85 100 Room Air 08:00 (105) 05/28/18 21 23:13 05/28/18 15:25 Intake and Output 05/28/18 05/28/18 05/29/18 1515:00 23:00 07:00 IntakeIntake Total 250 ml 500 ml 50 ml OutputOutput Total 600 ml 1150 ml 1300 ml BalanceBalance -350 ml -650 ml -1250 ml Results Results 24hrs Laboratory Tests Test 05/28/18 11:59 05/28/18 17:39 05/28/18 20:45 05/29/18 08:15 Bedside Glucose 214 144 174 White Blood Count 13.6 #H Red Blood Count 5.10 Hemoglobin 14.1 Hematocrit 43.4 Mean Corpuscular Volume 85.1 Mean Corpuscular 27.6 L Hemoglobin Mean Corpuscular 32.5 Hemoglobin Concent Red Cell Distribution 13.3 Width Platelet Count 654 #H Mean Platelet Volume 9.2 Immature Granulocytes % 0.700 H Neutrophils % 83.8 H Lymphocytes % 7.1 L Monocytes % 8.0 Eosinophils % 0.1 Basophils % 0.3 Nucleated Red Blood 0.0 Cells % Immature Granulocytes # 0.100 H Neutrophils # 11.4 H Lymphocytes # 1.0 Monocytes # 1.1 H Eosinophils # 0.0 Basophils # 0.0 Nucleated Red Blood 0.0 Cells # Test 05/29/18 08:59 Bedside Glucose 119 Medications Medication Current Medications Colchicine (Colchicine) 0.6 mg BID PO Last administered on 05/29/18at 09:01; Admin Dose 0.6 MG; Start 05/27/18 at 21:00 Lorazepam (Ativan) 0.5 mg Q8H PRN PO .ANXIETY; Start 05/27/18 at 13:30 Ondansetron HCl (Zofran Inj) 4 mg Q6H PRN IV NAUSEA/VOMITING; Start 05/27/18 at 13:30 Nitroglycerin (Nitroglycerin (Sl Tab) 0.4 Mg) 1 tab Q5M PRN SL .CHEST PAIN; Start 05/27/18 at 13:30 Acetaminophen (Tylenol Tab) 650 mg Q6H PRN PO .PAIN 1-3 OR TEMP Last administered on 05/27/18at 17:46; Admin Dose 650 MG; Start 05/27/18 at 13:30 Zolpidem Tartrate (Ambien) 5 mg QHS PRN PO .INSOMNIA; Start 05/27/18 at 13:30 Docusate Sodium (Colace) 100 mg Q12H PO Last administered on 05/28/18at 20:56; Admin Dose 100 MG; Start 05/27/18 at 13:30 Ceftriaxone Sodium 50 ml @ 100 mls/hr Q24H IVPB Last administered on 05/28/18 13:37; Admin Dose 100 MLS/HR; Start 05/27/18 at 13:30 Azithromycin 250 ml @ 250 mls/hr Q24H IVPB Last administered on 05/28/18 13:37; Admin Dose 250 MLS/HR; Start 05/27/18 at 13:30 Albuterol (Proventil 0.083% (Neb)) 1.25 mg Q2H RESP THERAPY PRN HHN sob, wheez ing Last administered on 05/28/18at 15:25; Admin Dose 1.25 MG; Start 05/27/18 at 13:30 Amlodipine Besylate (Norvasc) 10 mg DAILY PO Last administered on 05/29/18at 09:02; Admin Dose 10 MG; Start 05/28/18 at 09:00 Losartan Potassium (Cozaar) 100 mg DAILY PO Last administered on 05/29/18at 09:02; Admin Dose 100 MG; Start 05/28/18 at 09:00 Cholecalciferol (Vitamin D) 1,000 unit DAILY PO Last administered on 05/29/18at 09:01; Admin Dose 1,000 UNIT; Start 05/28/18 at 09:00 Enalaprilat (Vasotec Iv) 1.25 mg Q6H PRN IV SBP>170; Start 05/27/18 at 23:00 Insulin Aspart (Novolog Insulin Pen) NOVOLOG *MILD* ALGORITHM WITH MEALS BEDTIME SC Last administered on 05/28/18at 17:43; Admin Dose 1 UNIT; Start 05/28/18 at 11:30 Prednisone (Prednisone) 40 mg ONCE ONCE PO ; Start 05/30/18 at 09:00; Stop 05/30/18 at 09:01 Prednisone (Prednisone) 30 mg ONCE ONCE PO ; Start 05/31/18 at 09:00; Stop 05/31/18 at 09:01 Prednisone (Prednisone) 20 mg ONCE ONCE PO ; Start 06/01/18 at 09:00; Stop 06/01/18 at 09:01 Prednisone (Prednisone) 10 mg ONCE ONCE PO ; Start 06/02/18 at 09:00; Stop 06/02/18 at 09:01 Miscellaneous Information 1 ea NOTE XX ; Start 05/28/18 at 09:30 Glucose (Glutose) 15 gm Q15M PRN PO DECREASED GLUCOSE; Start 05/28/18 at 09:30 Glucose (Glutose) 22.5 gm Q15M PRN PO DECREASED GLUCOSE; Start 05/28/18 at 09:30 Dextrose (D50w Syringe) 25 ml Q15M PRN IV DECREASED GLUCOSE; Start 05/28/18 at 09:30 Dextrose (D50w Syringe) 50 ml Q15M PRN IV DECREASED GLUCOSE; Start 05/28/18 at 09:30 Glucagon (Glucagen) 1 mg Q15M PRN IM DECREASED GLUCOSE; Start 05/28/18 at 09:30 Glucose (Glutose) 15 gm Q15M PRN BUCCAL DECREASED GLUCOSE; Start 3/7/19 at 09:30 Metoprolol Tartrate (Lopressor) 50 mg BID PO Last administered on 05/29/18at 09:02; Admin Dose 50 MG; Start 05/28/18 at 11:00 Morphine Sulfate (morphine) 6 mg Q4H PRN PO SEVERE PAIN LEVEL 7-10; Start 05/28/18 at 11:00 Furosemide (Lasix) 40 mg BID DIURETICS IV Last administered on 05/29/18at 06:16; Admin Dose 40 MG; Start 05/28/18 at 20:00 KAYDEN DUEÑAS May 29, 2018 10:11
--- NOTE | 2018-05-29 10:18 | RADRPT ---
Echocardiogram Report Patient Name: MJ GUOPatient ID: [id number] : 1940 (77y 8m)Study Date: 05/29/2018 8:39:23 AM Gender: MAccession #: [id number] Tech: Mukul Fink RDCS Location: 109 Ref.Physician: MARCUS HUMPHRIES Height(Cm): BSA: Weight(Kg): Quality: AdequateAccount #: Procedures: Echocardiographic Report: Transthoracic echocardiogram examination. Indications: Pericardial Effusion. Findings: Left Ventricle: The left ventricular ejection fraction is visually estimated at 60 %. Pericardium: Small pericardial effusion improved from day prior. Still no effusion anterior and apical. Posterior and lateral pockets 1.5cm. Still a moderate sized pocket around the right atrium. IVC is now normal in size and collapses well. IVC: Normal inferior vena cava appearance and respiratory collapse. Conclusions: Small pericardial effusion improved from day prior. Still no effusion anterior and apical. Posterior and lateral pockets 1.5cm. Still a moderate sized pocket around the right atrium. IVC is now normal in size and collapses well. Electronically Signed By: Marcus Humphries 2018-05-29 10:16:58 PST
[2018-05-29] MEDS ORDERED: AZITHROMYCIN 500MG/NS (PMX) 250 ML IVPB SCH (10:30)
[2018-05-29] MEDS ORDERED: CEFTRIAXONE 1 GM/50 ML (PMX) 50 ML IVPB SCH (10:30)
--- NOTE | 2018-05-29 11:07 | CONS ---
Assessment/Plan Assessment/Plan Hospital Course (Demo Recall) Pericardial effusion: large by echo with pre-tamponade physiology. Significant symptoms. ?viral pericarditis vs malignant at his age. s/p diagnostic and therapeutic pericardiocentesis with 900mL removed. No drain output but still with effusion on CT and echo though improving. Acute diastolic CHF: now euvolemic after diuresis New onset atrial fibrillation: likely from combination of above but also may be from irritation of pericardial drain. Will consider retirement anticoagulation as outpt once pericardial effusion has stabilized/resolved. Now back in sinus. Abdominal distension: no obvious pathology Left renal mass: Renal ultrasound shows left kidney mass but pt notes he has had a cyst before. HTN Asthma -keep drain in until tomorrow -check echo tomorrow am -d/c lasix -metoprolol 50mg PO BID -losartan 100mg -amlodipine 10mg -colchicine 0.6mg BID -f/u fluid studies Consultation Date/Type/Reason Admit Date/Time May 27, 2018 at 12:36 Initial Consult Date 05/27/18 Type of Consult Cardiology Requesting Provider: CARINE WORKMAN Date/Time of Note DATE: 05/29/18 TIME: 11:02 24 HR Interval Summary Free Text/Dictation Back in sinus. Comfortable today. No SOB. Renal ultrasound shows left kidney mass but pt notes he has had a cyst before. Exam/Review of Systems Exam Vitals Vital Signs Date Temp Pulse Resp B/P (MAP) Pulse Ox O2 O2 Flow FiO2 Time Delivery Rate 05/29/18 81 08:00 05/29/18 98.0 21 147/85 100 Room Air 08:00 (105) 05/28/18 21 23:13 05/28/18 15:25 Intake and Output 05/28/18 05/28/18 05/29/18 1515:00 23:00 07:00 IntakeIntake Total 250 ml 500 ml 50 ml OutputOutput Total 600 ml 1150 ml 1300 ml BalanceBalance -350 ml -650 ml -1250 ml Constitutional: alert, oriented Psych: no complaints, nl mood/affect Head: normocephalic, atraumatic Neck: supple; No jvd Respiratory: clear to auscultation; No crackles/rales, No wheezing Cardiovascular: regular rate and rhythm; No edema, No systolic murmur Gastrointestinal: soft, non-tender; No distended Neurological: nl mental status, nl speech Results Result Diagram: 05/29/18 0815 05/29/18 0815 Results 24hrs Laboratory Tests Test 05/28/18 11:59 05/28/18 17:39 05/28/18 20:45 05/29/18 08:15 Bedside Glucose 214 144 174 White Blood Count 13.6 #H Red Blood Count 5.10 Hemoglobin 14.1 Hematocrit 43.4 Mean Corpuscular Volume 85.1 Mean Corpuscular 27.6 L Hemoglobin Mean Corpuscular 32.5 Hemoglobin Concent Red Cell Distribution 13.3 Width Platelet Count 654 #H Mean Platelet Volume 9.2 Immature Granulocytes % 0.700 H Neutrophils % 83.8 H Lymphocytes % 7.1 L Monocytes % 8.0 Eosinophils % 0.1 Basophils % 0.3 Nucleated Red Blood 0.0 Cells % Immature Granulocytes # 0.100 H Neutrophils # 11.4 H Lymphocytes # 1.0 Monocytes # 1.1 H Eosinophils # 0.0 Basophils # 0.0 Nucleated Red Blood 0.0 Cells # Sodium Level 138 Potassium Level 4.1 Chloride Level 99 Carbon Dioxide Level 30 Anion Gap 9 Blood Urea Nitrogen 25 H Creatinine 1.36 H Est Glomerular Filtrat Rate mL/min Glucose Level 135 Calcium Level 8.9 Phosphorus Level 4.5 Magnesium Level 2.0 Test 05/29/18 08:59 Bedside Glucose 119 Medications Medication Current Medications Colchicine (Colchicine) 0.6 mg BID PO Last administered on 05/29/18at 09:01; Admin Dose 0.6 MG; Start 05/27/18 at 21:00 Lorazepam (Ativan) 0.5 mg Q8H PRN PO .ANXIETY; Start 05/27/18 at 13:30 Ondansetron HCl (Zofran Inj) 4 mg Q6H PRN IV NAUSEA/VOMITING; Start 05/27/18 at 13:30 Nitroglycerin (Nitroglycerin (Sl Tab) 0.4 Mg) 1 tab Q5M PRN SL .CHEST PAIN; Start 05/27/18 at 13:30 Acetaminophen (Tylenol Tab) 650 mg Q6H PRN PO .PAIN 1-3 OR TEMP Last administered on 05/27/18at 17:46; Admin Dose 650 MG; Start 05/27/18 at 13:30 Zolpidem Tartrate (Ambien) 5 mg QHS PRN PO .INSOMNIA; Start 05/27/18 at 13:30 Docusate Sodium (Colace) 100 mg Q12H PO Last administered on 05/28/18 20:56; Admin Dose 100 MG; Start 05/27/18 at 13:30 Ceftriaxone Sodium 50 ml @ 100 mls/hr Q24H IVPB Last administered on 05/28/18 13:37; Admin Dose 100 MLS/HR; Start 05/27/18 at 13:30 Azithromycin 250 ml @ 250 mls/hr Q24H IVPB Last administered on 05/28/18 13:37; Admin Dose 250 MLS/HR; Start 05/27/18 at 13:30 Albuterol (Proventil 0.083% (Neb)) 1.25 mg Q2H RESP THERAPY PRN HHN sob, wheezing Last administered on 05/28/18 15:25; Admin Dose 1.25 MG; Start 05/27/18 at 13:30 Amlodipine Besylate (Norvasc) 10 mg DAILY PO Last administered on 05/29/18 09:02; Admin Dose 10 MG; Start 05/28/18 at 09:00 Losartan Potassium (Cozaar) 100 mg DAILY PO Last administered on 05/29/18 09:02; Admin Dose 100 MG; Start 05/28/18 at 09:00 Cholecalciferol (Vitamin D) 1,000 unit DAILY PO Last administered on 05/29/18 09:01; Admin Dose 1,000 UNIT; Start 05/28/18 at 09:00 Enalaprilat (Vasotec Iv) 1.25 mg Q6H PRN IV SBP>170; Start 05/27/18 at 23:00 Insulin Aspart (Novolog Insulin Pen) NOVOLOG *MILD* ALGORITHM WITH MEALS BEDTIME SC Last administered on 05/28/18 17:43; Admin Dose 1 UNIT; Start 05/28/18 at 11:30 Prednisone (Prednisone) 40 mg ONCE ONCE PO ; Start 05/30/18 at 09:00; Stop 05/30/18 at 09:01 Prednisone (Prednisone) 30 mg ONCE ONCE PO ; Start 05/31/18 at 09:00; Stop 05/31/18 at 09:01 Prednisone (Prednisone) 20 mg ONCE ONCE PO ; Start 06/01/18 at 09:00; Stop 06/01/18 at 09:01 Prednisone (Prednisone) 10 mg ONCE ONCE PO ; Start 06/02/18 at 09:00; Stop 06/02/18 at 09:01 Miscellaneous Information 1 ea NOTE XX ; Start 05/28/18 at 09:30 Glucose (Glutose) 15 gm Q15M PRN PO DECREASED GLUCOSE; Start 05/28/18 at 09:30 Glucose (Glutose) 22.5 gm Q15M PRN PO DECREASED GLUCOSE; Start 05/28/18 at 09:30 Dextrose (D50w Syringe) 25 ml Q15M PRN IV DECREASED GLUCOSE; Start 05/28/18 at 09:30 Dextrose (D50w Syringe) 50 ml Q15M PRN IV DECREASED GLUCOSE; Start 05/28/18 at 09:30 Glucagon (Glucagen) 1 mg Q15M PRN IM DECREASED GLUCOSE; Start 05/28/18 at 09:30 Glucose (Glutose) 15 gm Q15M PRN BUCCAL DECREASED GLUCOSE; Start 05/28/18 at 09:30 Metoprolol Tartrate (Lopressor) 50 mg BID PO Last administered on 05/29/18at 09:02; Admin Dose 50 MG; Start 05/28/18 at 11:00 Morphine Sulfate (morphine) 6 mg Q4H PRN PO SEVERE PAIN LEVEL 7-10; Start 05/28/18 at 11:00 JAYME CEVALLOS May 29, 2018 11:07
[2018-05-29] MEDS: DOCUSATE SODIUM 100 MG CAP PO SCH ×2 (13:37→20:52)
[2018-05-29] MEDS: CEFTRIAXONE 1 GM/50 ML (PMX) 50 ML IVPB SCH (13:39)
[2018-05-29] MEDS: AZITHROMYCIN 500MG/NS (PMX) 250 ML IVPB SCH (13:39)
--- NOTE | 2018-05-29 20:38 | CONS ---
Assessment/Plan Assessment/Plan Hospital Course (Demo Recall) 77-year-old male referred to the emergency department from his baling machine operator for evaluation of a pericardial effusion. Patient was seen initially in an outside urgent care for shortness of breath where he had a chest x-ray done demonstrating a large heart. He followed up with a local baling machine operator who demonstrated he had a significant pericardial effusion. The patient underwent Pericardiocentesis. Renal ultrasound was done and that showed a 2 cm hypoechoic mass in the lower pole of the left kidney suspicious for malignant lesion therefore a urological consultation was requested. The patient denies any prior history of kidney disease. There is no history of hematuria. No history of kidney stones. His medical doctor has referred him to a urologist which he does not remember the name because of enlarged prostate. Because of the mass in the lower pole of the left kidney patient underwent an MRI. The report is still pending. Regardless of the nature of this mass no surgical intervention is to be done during this hospital admission. I discussed it with the patient. He will follow-up with his medical doctor and his medical doctor would have to refer him to the urologist contracted with his medical group ([facility]) and that mass could be worked out as an outpatient. Patient should get a copy of the ultrasound and MRI report upon discharge. Consultation Date/Type/Reason Admit Date/Time May 27, 2018 at 12:36 Date of Consultation: May 29, 2018 Type of Consult Urology Reason for Consultation 2 cm hypoechoic mass in the lower pole of the left kidney suspicious for malignant lesion. Requesting Provider: KAYDEN DUEÑAS Date/Time of Note DATE: 05/29/18 TIME: 20:26 Hx of Present Illness 77-year-old male referred to the emergency department from his baling machine operator for evaluation of a pericardial effusion. Patient was seen initially in an outside urgent care for shortness of breath where he had a chest x-ray done demonstrating a large heart. He followed up with a local baling machine operator who demonstrated he had a significant pericardial effusion. The patient underwent Pericardiocentesis. Renal ultrasound was done and that showed a 2 cm hypoechoic mass in the lower pole of the left kidney suspicious for malignant lesion therefore a urological consultation was requested. The patient denies any prior history of kidney disease. There is no history of hematuria. No history of kidney stones. His medical doctor has referred him to a urologist which he does not remember the name because of enlarged prostate. Constitutional: no complaints Eyes: no complaints ENT: no complaints Respiratory: shortness of breath (On admission. He is much better now) Cardiovascular: other (Pericardial effusion) Gastrointestinal: no complaints Genitourinary: No dysuria, No hematuria Musculoskeletal: no complaints Skin: no complaints Neurologic: no complaints Endocrine: no complaints Past Medical History Medical History: diabetes, GERD, high cholesterol, hypertension, other (Gout) Medications Current Medications Colchicine (Colchicine) 0.6 mg BID PO Last administered on 05/29/18 09:01; Admin Dose 0.6 MG; Start 05/27/18 at 21:00 Lorazepam (Ativan) 0.5 mg Q8H PRN PO .ANXIETY; Start 05/27/18 at 13:30 Ondansetron HCl (Zofran Inj) 4 mg Q6H PRN IV NAUSEA/VOMITING; Start 05/27/18 at 13:30 Nitroglycerin (Nitroglycerin (Sl Tab) 0.4 Mg) 1 tab Q5M PRN SL .CHEST PAIN; Start 05/27/18 at 13:30 Acetaminophen (Tylenol Tab) 650 mg Q6H PRN PO .PAIN 1-3 OR TEMP Last administered on 05/27/18 17:46; Admin Dose 650 MG; Start 05/27/18 at 13:30 Zolpidem Tartrate (Ambien) 5 mg QHS PRN PO .INSOMNIA; Start 05/27/18 at 13:30 Docusate Sodium (Colace) 100 mg Q12H PO Last administered on 05/29/18 13:37; Admin Dose 100 MG; Start 05/27/18 at 13:30 Ceftriaxone Sodium 50 ml @ 100 mls/hr Q24H IVPB Last administered on 05/29/18 13:39; Admin Dose 100 MLS/HR; Start 05/27/18 at 13:30 Azithromycin 250 ml @ 250 mls/hr Q24H IVPB Last administered on 05/29/18 13:39; Admin Dose 250 MLS/HR; Start 05/27/18 at 13:30 Albuterol (Proventil 0.083% (Neb)) 1.25 mg Q2H RESP THERAPY PRN HHN sob, wheezing Last administered on 05/28/18 15:25; Admin Dose 1.25 MG; Start 05/27/18 at 13:30 Amlodipine Besylate (Norvasc) 10 mg DAILY PO Last administered on 05/29/18at 09:02; Admin Dose 10 MG; Start 05/28/18 at 09:00 Losartan Potassium (Cozaar) 100 mg DAILY PO Last administered on 05/29/18at 09:02; Admin Dose 100 MG; Start 05/28/18 at 09:00 Cholecalciferol (Vitamin D) 1,000 unit DAILY PO Last administered on 05/29/18at 09:01; Admin Dose 1,000 UNIT; Start 05/28/18 at 09:00 Enalaprilat (Vasotec Iv) 1.25 mg Q6H PRN IV SBP>170; Start 05/27/18 at 23:00 Insulin Aspart (Novolog Insulin Pen) NOVOLOG *MILD* ALGORITHM WITH MEALS BE DTIME SC Last administered on 05/29/18at 17:37; Admin Dose 2 UNIT; Start 05/28/18 at 11:30 Prednisone (Prednisone) 40 mg ONCE ONCE PO ; Start 05/30/18 at 09:00; Stop 05/30/18 at 09:01 Prednisone (Prednisone) 30 mg ONCE ONCE PO ; Start 05/31/18 at 09:00; Stop 05/31/18 at 09:01 Prednisone (Prednisone) 20 mg ONCE ONCE PO ; Start 06/01/18 at 09:00; Stop 06/01/18 at 09:01 Prednisone (Prednisone) 10 mg ONCE ONCE PO ; Start 06/02/18 at 09:00; Stop 06/02/18 at 09:01 Miscellaneous Information 1 ea NOTE XX ; Start 05/28/18 at 09:30 Glucose (Glutose) 15 gm Q15M PRN PO DECREASED GLUCOSE; Start 05/28/18 at 09:30 Glucose (Glutose) 22.5 gm Q15M PRN PO DECREASED GLUCOSE; Start 05/28/18 at 09:30 Dextrose (D50w Syringe) 25 ml Q15M PRN IV DECREASED GLUCOSE; Start 05/28/18 at 09:30 Dextrose (D50w Syringe) 50 ml Q15M PRN IV DECREASED GLUCOSE; Start 05/28/18 at 09:30 Glucagon (Glucagen) 1 mg Q15M PRN IM DECREASED GLUCOSE; Start 05/28/18 at 09:30 Glucose (Glutose) 15 gm Q15M PRN BUCCAL DECREASED GLUCOSE; Start 05/28/18 at 09:30 Metoprolol Tartrate (Lopressor) 50 mg BID PO Last administered on 05/29/18at 09:0 2; Admin Dose 50 MG; Start 05/28/18 at 11:00 Morphine Sulfate (morphine) 6 mg Q4H PRN PO SEVERE PAIN LEVEL 7-10; Start 05/28/18 at 11:00 Allergies: Coded Allergies: No Known Allergy (Unverified , 05/27/18) Past Surgical History Past Surgical Hx: other (Surgery on his low back) Social History Alcohol Use: occasionally Smoking Status: Former smoker Drug Use: none Exam/Review of Systems Exam Vitals Vital Signs Date Temp Pulse Resp B/P (MAP) Pulse Ox O2 O2 Flow FiO2 Time Delivery Rate 05/29/18 88 14 114/75 100 Room Air 19:00 (88) 05/29/18 98.2 12:00 05/28/18 21 23:13 05/28/18 15:25 Intake and Output 05/28/18 05/28/18 05/29/18 1515:00 23:00 07:00 IntakeIntake Total 250 ml 500 ml 50 ml OutputOutput Total 600 ml 1150 ml 1300 ml BalanceBalance -350 ml -650 ml -1250 ml Constitutional: alert, oriented Psych: no complaints Head: normocephalic Eyes: nl conjunctiva ENMT: nl external ears & nose Neck: supple, non-tender Respiratory: normal air movement; No wheezing Gastrointestinal: soft, non-tender Genitourinary - Male: nl penis, nl scrotum, other (Rectal exam enlarged prostate and nodular prostate); No CVA tenderness Musculoskeletal: nl extremities to inspection Extremities: No calf tenderness Neurological: nl mental status Skin: nl turgor Lymph: nl lymph nodes Results Result Diagram: 05/29/18 0815 05/29/18 0815 Results 24hrs Laboratory Tests Test 05/28/18 20:45 05/29/18 08:15 05/29/18 08:59 05/29/18 12:39 Bedside Glucose 174 119 141 White Blood Count 13.6 #H Red Blood Count 5.10 Hemoglobin 14.1 Hematocrit 43.4 Mean Corpuscular Volume 85.1 Mean Corpuscular 27.6 L Hemoglobin Mean Corpuscular 32.5 Hemoglobin Concent Red Cell Distribution 13.3 Width Platelet Count 654 #H Mean Platelet Volume 9.2 Immature Granulocytes % 0.700 H Neutrophils % 83.8 H Lymphocytes % 7.1 L Monocytes % 8.0 Eosinophils % 0.1 Basophils % 0.3 Nucleated Red Blood 0.0 Cells % Immature Granulocytes # 0.100 H Neutrophils # 11.4 H Lymphocytes # 1.0 Monocytes # 1.1 H Eosinophils # 0.0 Basophils # 0.0 Nucleated Red Blood 0.0 Cells # Sodium Level 138 Potassium Level 4.1 Chloride Level 99 Carbon Dioxide Level 30 Anion Gap 9 Blood Urea Nitrogen 25 H Creatinine 1.36 H Est Glomerular Filtrat Rate mL/min Glucose Level 135 Calcium Level 8.9 Phosphorus Level 4.5 Magnesium Level 2.0 Test 05/29/18 17:36 Bedside Glucose 195 Imaging Imaging Abdominal ultrasound: 1. No evidence of cholelithiasis or acute cholecystitis. 2. Fatty change of the liver. 3. 2 cm hypoechoic mass in the lower pole of the left kidney. This is suspicious for malignant lesion. Recommend three-phase CT or MRI for further characterization. 4. Increased bilateral renal cortical echogenicity suggest medical renal disease. 5. Pancreas not visualized Patient had MRI, the report is pending Medications Medication Current Medications Colchicine (Colchicine) 0.6 mg BID PO Last administered on 05/29/18at 09:01; Admin Dose 0.6 MG; Start 05/27/18 at 21:00 Lorazepam (Ativan) 0.5 mg Q8H PRN PO .ANXIETY; Start 05/27/18 at 13:30 Ondansetron HCl (Zofran Inj) 4 mg Q6H PRN IV NAUSEA/VOMITING; Start 05/27/18 at 13:30 Nitroglycerin (Nitroglycerin (Sl Tab) 0.4 Mg) 1 tab Q5M PRN SL .CHEST PAIN; Start 05/27/18 at 13:30 Acetaminophen (Tylenol Tab) 650 mg Q6H PRN PO .PAIN 1-3 OR TEMP Last administered on 05/27/18at 17:46; Admin Dose 650 MG; Start 05/27/18 at 13:30 Zolpidem Tartrate (Ambien) 5 mg QHS PRN PO .INSOMNIA; Start 05/27/18 at 13:30 Docusate Sodium (Colace) 100 mg Q12H PO Last administered on 05/29/18 13:37; Admin Dose 100 MG; Start 05/27/18 at 13:30 Ceftriaxone Sodium 50 ml @ 100 mls/hr Q24H IVPB Last administered on 05/29/18 13:39; Admin Dose 100 MLS/HR; Start 05/27/18 at 13:30 Azithromycin 250 ml @ 250 mls/hr Q24H IVPB Last administered on 05/29/18 13:39; Admin Dose 250 MLS/HR; Start 05/27/18 at 13:30 Albuterol (Proventil 0.083% (Neb)) 1.25 mg Q2H RESP THERAPY PRN HHN sob, wheezing Last administered on 05/28/18 15:25; Admin Dose 1.25 MG; Start 05/27/18 at 13:30 Amlodipine Besylate (Norvasc) 10 mg DAILY PO Last administered on 05/29/18 09:02; Admin Dose 10 MG; Start 05/28/18 at 09:00 Losartan Potassium (Cozaar) 100 mg DAILY PO Last administered on 05/29/18 09:02; Admin Dose 100 MG; Start 05/28/18 at 09:00 Cholecalciferol (Vitamin D) 1,000 unit DAILY PO Last administered on 05/29/18 09:01; Admin Dose 1,000 UNIT; Start 05/28/18 at 09:00 Enalaprilat (Vasotec Iv) 1.25 mg Q6H PRN IV SBP>170; Start 05/27/18 at 23:00 Insulin Aspart (Novolog Insulin Pen) NOVOLOG *MILD* ALGORITHM WITH MEALS BEDTIME SC Last administered on 05/29/18 17:37; Admin Dose 2 UNIT; Start 05/28/18 at 11:30 Prednisone (Prednisone) 40 mg ONCE ONCE PO ; Start 05/30/18 at 09:00; Stop 05/30/18 at 09:01 Prednisone (Prednisone) 30 mg ONCE ONCE PO ; Start 05/31/18 at 09:00; Stop 05/31/18 at 09:01 Prednisone (Prednisone) 20 mg ONCE ONCE PO ; Start 06/01/18 at 09:00; Stop 06/01/18 at 09:01 Prednisone (Prednisone) 10 mg ONCE ONCE PO ; Start 06/02/18 at 09:00; Stop 06/02/18 at 09:01 Miscellaneous Information 1 ea NOTE XX ; Start 05/28/18 at 09:30 Glucose (Glutose) 15 gm Q15M PRN PO DECREASED GLUCOSE; Start 05/28/18 at 09:30 Glucose (Glutose) 22.5 gm Q15M PRN PO DECREASED GLUCOSE; Start 05/28/18 at 09:30 Dextrose (D50w Syringe) 25 ml Q15M PRN IV DECREASED GLUCOSE; Start 05/28/18 at 09:30 Dextrose (D50w Syringe) 50 ml Q15M PRN IV DECREASED GLUCOSE; Start 05/28/18 at 09:30 Glucagon (Glucagen) 1 mg Q15M PRN IM DECREASED GLUCOSE; Start 05/28/18 at 09:30 Glucose (Glutose) 15 gm Q15M PRN BUCCAL DECREASED GLUCOSE; Start 05/28/18 at 09:30 Metoprolol Tartrate (Lopressor) 50 mg BID PO Last administered on 05/29/18at 09:02; Admin Dose 50 MG; Start 05/28/18 at 11:00 Morphine Sulfate (morphine) 6 mg Q4H PRN PO SEVERE PAIN LEVEL 7-10; Start 05/28/18 at 11:00 BARRON BOLDEN MD May 29, 2018 20:37
[2018-05-30] VITALS (24 sets, daily range): BP systolic 115–159; BP diastolic 67–130; PULSE 68–84; RESP 16–26
[2018-05-30] MEDS: INSULIN ASPART [NOVOLOG] 3 ML PEN SC SCH ×4 (07:35→21:00)
[2018-05-30] MEDS: AMLODIPINE 10 MG TAB PO SCH (08:18)
[2018-05-30] MEDS: COLCHICINE 0.6 MG TAB PO SCH ×2 (08:19→21:03)
[2018-05-30] MEDS: LOSARTAN 50 MG TAB PO SCH (08:19)
[2018-05-30] MEDS: CHOLECALCIFEROL 1,000 UNIT TAB PO SCH (08:19)
[2018-05-30] MEDS: METOPROLOL 50 MG TAB PO SCH ×2 (08:19→21:04)
--- NOTE | 2018-05-30 08:39 | PN ---
Date/Time of Note Date/Time of Note DATE: 05/30/18 TIME: 08:34 Assessment/Plan VTE Prophylaxis Risk [place] [facility] [place] risk: 4 SCD applied (from [facility] [place] No SCD contraindicated: low risk/ambulating Pharmacological prophylaxis: NA/contraindicated, other Pharm contraindication: low risk/ambulating (And pericardial effusion) Lines/Catheters IV Catheter Type (from [facility]): [facility]ine Lock Urinary Cath still in place: No Assessment/Plan Problems: (1) Pericardial effusion Status: Acute Comment: Presently he has a drain in and the repeat echocardiograms are being monitored by her sales consultant insurance colleagues. The etiology of this effusion is unclear as of this moment fortunately the cytology is negative. He is off of his allopurinol and I am assuming this is being held due to the concern that the allopurinol might have been a source of the pericardial effusion. Please note this is an extremely rare side effect and he been on the allopurinol for over 2 decades. Cardiology to comment about whether or not they are comfortable with resumption of allopurinol (2) S/P pericardial window creation Onset Date: ~ 05/27/2018 Status: Acute Comment: Stable. (3) Hyperuricemia Status: Chronic Comment: Resumption of allopurinol with permission from cardiology (4) Diabetes mellitus type 2 in nonobese Status: Chronic Comment: Stable sugars despite being on steroid treatment. (5) Essential hypertension Status: Chronic Comment: Presently on angiotensin II receptor britta and metoprolol and dihydropyridine calcium channel britta. Reduce dose of dihydropyridine calcium channel britta (6) Positive nasal culture for methicillin resistant Staphylococcus aureus Status: Acute Comment: Noted and will follow protocols Result Diagram: 05/30/18 0510 05/30/18 0510 Results 24hrs Laboratory Tests Test 05/29/18 08:59 05/29/18 12:39 05/29/18 17:36 05/29/18 20:49 Bedside Glucose 119 141 195 127 Test 05/30/18 05:10 05/30/18 08:16 White Blood Count 11.5 H Red Blood Count 5.10 Hemoglobin 14.2 Hematocrit 43.2 Mean Corpuscular Volume 84.7 Mean Corpuscular 27.8 L Hemoglobin Mean Corpuscular 32.9 Hemoglobin Concent Red Cell Distribution 13.4 Width Platelet Count 680 H Mean Platelet Volume 9.1 Immature Granulocytes % 0.400 Neutrophils % 79.0 H Lymphocytes % 10.8 L Monocytes % 9.5 Eosinophils % 0.1 Basophils % 0.2 Nucleated Red Blood 0.0 Cells % Immature Granulocytes # 0.050 H Neutrophils # 9.1 H Lymphocytes # 1.3 Monocytes # 1.1 H Eosinophils # 0.0 Basophils # 0.0 Nucleated Red Blood 0.0 Cells # Sodium Level 139 Potassium Level 4.1 Chloride Level 101 Carbon Dioxide Level 27 Anion Gap 11 Blood Urea Nitrogen 35 H Creatinine 1.18 Est Glomerular Filtrat Rate mL/min Glucose Level 122 Calcium Level 8.9 Magnesium Level 2.1 Bedside Glucose 124 Subjective 24 Hr Interval Summary Free Text/Dictation Patient reports that he is feeling relatively well although he still has some dyspnea. He has not been up and ambulating Constitutional: no complaints (No fevers chills or sweats) Respiratory: no complaints (No cough no wheezing no shortness of breath) Cardiovascular: no complaints (No chest pain no palpitations) Gastrointestinal: no complaints Genitourinary: no complaints Exam/Review of Systems Exam Vitals Vital Signs Date Temp Pulse Resp B/P (MAP) Pulse Ox O2 O2 Flow FiO2 Time Delivery Rate 05/30/18 78 18 129/85 100 Room Air 06:00 (100) 05/30/18 97.9 00:00 05/29/18 21 21:00 05/28/18 15:25 Intake and Output 05/29/18 05/29/18 05/30/18 1515:00 23:00 07:00 IntakeIntake Total 540 ml 120 ml OutputOutput Total 400 ml 0 ml 500 ml BalanceBalance 140 ml 120 ml -500 ml Constitutional: alert, oriented Neck: supple, non-tender Respiratory: clear to auscultation, normal air movement Cardiovascular: regular rate and rhythm, nl pulses Gastrointestinal: soft, nl liver, spleen, non-tender Results Results 24hrs Laboratory Tests Test 05/29/18 08:59 05/29/18 12:39 05/29/18 17:36 05/29/18 20:49 Bedside Glucose 119 141 195 127 Test 05/30/18 05:10 05/30/18 08:16 White Blood Count 11.5 H Red Blood Count 5.10 Hemoglobin 14.2 Hematocrit 43.2 Mean Corpuscular Volume 84.7 Mean Corpuscular 27.8 L Hemoglobin Mean Corpuscular 32.9 Hemoglobin Concent Red Cell Distribution 13.4 Width Platelet Count 680 H Mean Platelet Volume 9.1 Immature Granulocytes % 0.400 Neutrophils % 79.0 H Lymphocytes % 10.8 L Monocytes % 9.5 Eosinophils % 0.1 Basophils % 0.2 Nucleated Red Blood 0.0 Cells % Immature Granulocytes # 0.050 H Neutrophils # 9.1 H Lymphocytes # 1.3 Monocytes # 1.1 H Eosinophils # 0.0 Basophils # 0.0 Nucleated Red Blood 0.0 Cells # Sodium Level 139 Potassium Level 4.1 Chloride Level 101 Carbon Dioxide Level 27 Anion Gap 11 Blood Urea Nitrogen 35 H Creatinine 1.18 Est Glomerular Filtrat Rate mL/min Glucose Level 122 Calcium Level 8.9 Magnesium Level 2.1 Bedside Glucose 124 Medications Medication Current Medications Colchicine (Colchicine) 0.6 mg BID PO Last administered on 05/30/18 08:19; Admin Dose 0.6 MG; Start 05/27/18 at 21:00 Lorazepam (Ativan) 0.5 mg Q8H PRN PO .ANXIETY; Start 05/27/18 at 13:30 Ondansetron HCl (Zofran Inj) 4 mg Q6H PRN IV NAUSEA/VOMITING; Start 05/27/18 at 13:30 Nitroglycerin (Nitroglycerin (Sl Tab) 0.4 Mg) 1 tab Q5M PRN SL .CHEST PAIN; Start 05/27/18 at 13:30 Acetaminophen (Tylenol Tab) 650 mg Q6H PRN PO .PAIN 1-3 OR TEMP Last administered on 05/27/18at 17:46; Admin Dose 650 MG; Start 05/27/18 at 13:30 Zolpidem Tartrate (Ambien) 5 mg QHS PRN PO .INSOMNIA; Start 05/27/18 at 13:30 Docusate Sodium (Colace) 100 mg Q12H PO Last administered on 05/29/18 20:52; Admin Dose 100 MG; Start 05/27/18 at 13:30 Ceftriaxone Sodium 50 ml @ 100 mls/hr Q24H IVPB Last administered on 05/29/18 13:39; Admin Dose 100 MLS/HR; Start 05/27/18 at 13:30 Azithromycin 250 ml @ 250 mls/hr Q24H IVPB Last administered on 3/8/19at 13:39; Admin Dose 250 MLS/HR; Start 05/27/18 at 13:30 Albuterol (Proventil 0.083% (Neb)) 1.25 mg Q2H RESP THERAPY PRN HHN sob, wheezing Last administered on 05/28/18at 15:25; Admin Dose 1.25 MG; Start 05/27/18 at 13:30 Amlodipine Besylate (Norvasc) 10 mg DAILY PO Last administered on 05/30/18at 08:18; Admin Dose 10 MG; Start 05/28/18 at 09:00 Losartan Potassium (Cozaar) 100 mg DAILY PO Last administered on 05/30/18at 08:19; Admin Dose 100 MG; Start 05/28/18 at 09:00 Cholecalciferol (Vitamin D) 1,000 unit DAILY PO Last administered on 05/30/18at 08:19; Admin Dose 1,000 UNIT; Start 05/28/18 at 09:00 Enalaprilat (Vasotec Iv) 1.25 mg Q6H PRN IV SBP>170; Start 05/27/18 at 23:00 Insulin Aspart (Novolog Insulin Pen) NOVOLOG *MILD* ALGORITHM WITH MEALS BEDTIME SC Last administered on 05/29/18at 17:37; Admin Dose 2 UNIT; Start 05/28/18 at 11:30 Prednisone (Prednisone) 40 mg ONCE ONCE PO Last administered on 05/30/18at 08:20; Admin Dose 40 MG; Start 05/30/18 at 09:00; Stop 05/30/18 at 09:01 Prednisone (Prednisone) 30 mg ONCE ONCE PO ; Start 05/31/18 at 09:00; Stop 05/31/18 at 09:01 Prednisone (Prednisone) 20 mg ONCE ONCE PO ; Start 06/01/18 at 09:00; Stop 06/01/18 at 09:01 Prednisone (Prednisone) 10 mg ONCE ONCE PO ; Start 06/02/18 at 09:00; Stop 06/02/18 at 09:01 Miscellaneous Information 1 ea NOTE XX ; Start 05/28/18 at 09:30 Glucose (Glutose) 15 gm Q15M PRN PO DECREASED GLUCOSE; Start 05/28/18 at 09:30 Glucose (Glutose) 22.5 gm Q15M PRN PO DECREASED GLUCOSE; Start 05/28/18 at 09:30 Dextrose (D50w Syringe) 25 ml Q15M PRN IV DECREASED GLUCOSE; Start 05/28/18 at 09:30 Dextrose (D50w Syringe) 50 ml Q15M PRN IV DECREASED GLUCOSE; Start 05/28/18 at 09:30 Glucagon (Glucagen) 1 mg Q15M PRN IM DECREASED GLUCOSE; Start 05/28/18 at 09:30 Glucose (Glutose) 15 gm Q15M PRN BUCCAL DECREASED GLUCOSE; Start 05/28/18 at 09:30 Metoprolol Tartrate (Lopressor) 50 mg BID PO Last administered on 05/30/18at 08:19; Admin Dose 50 MG; Start 05/28/18 at 11:00 Morphine Sulfate (morphine) 6 mg Q4H PRN PO SEVERE PAIN LEVEL 7-10; Start 05/28/18 at 11:00 EDILMA MENDOZA MD May 30, 2018 08:39
[2018-05-30] MEDS ORDERED: predniSONE 20 MG TAB PO ONE (09:00)
[2018-05-30] MEDS: AMLODIPINE 5 MG TAB PO SCH (09:22)
--- NOTE | 2018-05-30 12:13 | RADRPT ---
Echocardiogram Report Patient Name: MJ GUOPatient ID: [id number] : 1940 (77y 8m)Study Date: 05/30/2018 8:08:42 AM Gender: MAccession #: [id number] Tech: LE Location: Ref.Physician: JAYME HUMPHRIES Height(Cm): BSA: Weight(Kg): Quality: GoodAccount #: Procedures: Echocardiographic Report: Transthoracic echocardiogram examination. Indications: Pericardial Effusion. Measurements: 2D/M Mode Doppler Measurement Value Normal Range Measurement Value Normal Range LVIDd 2D 4.3 [ 4.2 - 5.8 ] cm RYANN Vmax 2.1 [ 2.0 - 4.0 ] cm2 LVIDs 2D 3.2 [ 2.5 - 4.0 ] cm AV Mean Derek 0.9 [ 70.0 - 90.0 ] cm/sec LVPWd 2D 1.2 [ 0.6 - 1.0 ] cm AV Mean PG 3.0 [ 2.0 - 4.0 ] mmHg IVSd 2D 1.2 [ 0.6 - 1.0 ] cm AV Peak Derek 1.2 [ 100.0 - 170.0 ] cm/sec IVS/LVPW 2D 1.0 ratio AV Peak PG 6.0 [ 2.0 - 9.0 ] mmHg LVOT Diam 2.0 [ 2.3 - 2.9 ] cm AV VTI 19.7 cm LVOT Area 3.1 cm2 LVOT Peak Derek 0.8 [ 70.0 - 110.0 ] cm/sec LVOT Peak PG 3.0 [ 2.0 - 6.0 ] mmHg MV E Peak Derek 0.5 [ 60.0 - 130.0 ] cm/sec MV A Peak Derek 0.8 [ 100.0 - 120.0 ] cm/sec MV E/A 0.7 [ 0.8 - 1.5 ] ratio MV Decel Time 292 [ 104 - 258 ] msec Lat E` Derek 0.1 [ 10.0 - 15.0 ] cm/sec Med E` Derek 0.1 cm/sec MV E/A 0.7 [ 0.8 - 1.5 ] ratio PV Peak Derek 0.8 [ 40.0 - 80.0 ] cm/sec PV Peak PG 2.0 mmHg Findings: Pericardium: Small residual posterior pericardial effusion about 1cm which appears improved from prior. RA pressure estimated to be 3 mmHg. Conclusions: Small residual posterior pericardial effusion about 1cm which appears improved from prior. RA pressure estimated to be 3 mmHg. Electronically Signed By: Jayme Humphries 2018-05-30 12:13:04 PST
[2018-05-30] MEDS: CEFTRIAXONE 1 GM/50 ML (PMX) 50 ML IVPB SCH (12:46)
[2018-05-30] MEDS: DOCUSATE SODIUM 100 MG CAP PO SCH (12:46)
[2018-05-30] MEDS: AZITHROMYCIN 500MG/NS (PMX) 250 ML IVPB SCH (13:31)
--- NOTE | 2018-05-30 15:50 | CONS ---
Assessment/Plan Assessment/Plan Hospital Course (Demo Recall) Pericardial effusion: large by echo with pre-tamponade physiology. Significant symptoms. s/p diagnostic and therapeutic pericardiocentesis with 900mL removed. Likely viral pericarditis. CT chest and MRI abdomen/pelvis without malignancy and cytology negative.Small posterior effusion remaining. Acute diastolic CHF: now euvolemic after diuresis New onset atrial fibrillation: likely from combination of above but also may be from irritation of pericardial drain. Will consider group home anticoagulation as outpt once pericardial effusion has stabilized/resolved but may not need it. Now back in sinus. Left renal mass: Renal ultrasound shows left kidney mass but MRI was negative. Does have cysts HTN Asthma -drain removed -ok for tele -ok for d/c home tomorrow am. Please contact me if any issues. -metoprolol 50mg PO BID -losartan 100mg -amlodipine 5mg -colchicine 0.6mg BID (already has a prescription) Consultation Date/Type/Reason Admit Date/Time May 27, 2018 at 12:36 Initial Consult Date 05/27/18 Type of Consult Cardiology Requesting Provider: KAYDEN DUEÑAS Date/Time of Note DATE: 05/30/18 TIME: 15:46 24 HR Interval Summary Free Text/Dictation No events. No complaints. Echo with small residual posterior effusion. No output in drain. Exam/Review of Systems Exam Vitals Vital Signs Date Temp Pulse Resp B/P (MAP) Pulse Ox O2 O2 Flow FiO2 Time Delivery Rate 05/30/18 69 22 130/67 100 Room Air 15:00 (88) 05/30/18 97.0 12:00 05/29/18 21 21:00 05/28/18 15:25 Intake and Output 05/29/18 05/29/18 05/30/18 1515:00 23:00 07:00 IntakeIntake Total 540 ml 120 ml OutputOutput Total 400 ml 0 ml 500 ml BalanceBalance 140 ml 120 ml -500 ml Constitutional: alert, oriented Psych: no complaints, nl mood/affect Head: normocephalic, atraumatic Neck: No jvd Respiratory: clear to auscultation; No crackles/rales Cardiovascular: regular rate and rhythm; No edema Gastrointestinal: soft, non-tender Neurological: nl mental status, nl speech Results Result Diagram: 05/30/1850905/30/18509 Results 24hrs Laboratory Tests Test 05/29/18 17:36 05/29/18 20:49 05/30/18 05:07 05/30/18 05:10 Bedside Glucose 195 127 Hepatitis B Surface NEGATIVE Antigen Hepatitis C Antibody NEGATIVE White Blood Count 11.5 H Red Blood Count 5.10 Hemoglobin 14.2 Hematocrit 43.2 Mean Corpuscular Volume 84.7 Mean Corpuscular 27.8 L Hemoglobin Mean Corpuscular 32.9 Hemoglobin Concent Red Cell Distribution 13.4 Width Platelet Count 680 H Mean Platelet Volume 9.1 Immature Granulocytes % 0.400 Neutrophils % 79.0 H Lymphocytes % 10.8 L Monocytes % 9.5 Eosinophils % 0.1 Basophils % 0.2 Nucleated Red Blood 0.0 Cells % Immature Granulocytes # 0.050 H Neutrophils # 9.1 H Lymphocytes # 1.3 Monocytes # 1.1 H Eosinophils # 0.0 Basophils # 0.0 Nucleated Red Blood 0.0 Cells # Sodium Level 139 Potassium Level 4.1 Chloride Level 101 Carbon Dioxide Level 27 Anion Gap 11 Blood Urea Nitrogen 35 H Creatinine 1.18 Est Glomerular Filtrat Rate mL/min Glucose Level 122 Calcium Level 8.9 Magnesium Level 2.1 Test 05/30/18 08:16 05/30/18 11:52 Bedside Glucose 124 138 Medications Medication Current Medications Colchicine (Colchicine) 0.6 mg BID PO Last administered on 05/30/18at 08:19; Admin Dose 0.6 MG; Start 05/27/18 at 21:00 Lorazepam (Ativan) 0.5 mg Q8H PRN PO .ANXIETY; Start 05/27/18 at 13:30 Ondansetron HCl (Zofran Inj) 4 mg Q6H PRN IV NAUSEA/VOMITING; Start 05/27/18 at 13:30 Nitroglycerin (Nitroglycerin (Sl Tab) 0.4 Mg) 1 tab Q5M PRN SL .CHEST PAIN; Start 05/27/18 at 13:30 Acetaminophen (Tylenol Tab) 650 mg Q6H PRN PO .PAIN 1-3 OR TEMP Last administered on 05/27/18at 17:46; Admin Dose 650 MG; Start 05/27/18 at 13:30 Zolpidem Tartrate (Ambien) 5 mg QHS PRN PO .INSOMNIA; Start 05/27/18 at 13:30 Docusate Sodium (Colace) 100 mg Q12H PO Last administered on 05/30/18 12:46; Admin Dose 100 MG; Start 05/27/18 at 13:30 Ceftriaxone Sodium 50 ml @ 100 mls/hr Q24H IVPB Last administered on 05/30/18 12:46; Admin Dose 100 MLS/HR; Start 05/27/18 at 13:30 Azithromycin 250 ml @ 250 mls/hr Q24H IVPB Last administered on 05/30/18 13:31; Admin Dose 250 MLS/HR; Start 05/27/18 at 13:30 Albuterol (Proventil 0.083% (Neb)) 1.25 mg Q2H RESP THERAPY PRN HHN sob, wheezing Last administered on 05/28/18 15:25; Admin Dose 1.25 MG; Start 05/27/18 at 13:30 Losartan Potassium (Cozaar) 100 mg DAILY PO Last administered on 05/30/18 08:19; Admin Dose 100 MG; Start 05/28/18 at 09:00 Cholecalciferol (Vitamin D) 1,000 unit DAILY PO Last administered on 05/30/18 08:19; Admin Dose 1,000 UNIT; Start 05/28/18 at 09:00 Enalaprilat (Vasotec Iv) 1.25 mg Q6H PRN IV SBP>170; Start 05/27/18 at 23:00 Insulin Aspart (Novolog Insulin Pen) NOVOLOG *MILD* ALGORITHM WITH MEALS BEDTIME SC Last administered on 05/29/18 17:37; Admin Dose 2 UNIT; Start 05/28/18 at 11:30 Prednisone (Prednisone) 30 mg ONCE ONCE PO ; Start 05/31/18 at 09:00; Stop 05/31/18 at 09:01 Prednisone (Prednisone) 20 mg ONCE ONCE PO ; Start 06/01/18 at 09:00; Stop 06/01/18 at 09:01 Prednisone (Prednisone) 10 mg ONCE ONCE PO ; Start 06/02/18 at 09:00; Stop 06/02/18 at 09:01 Miscellaneous Information 1 ea NOTE XX ; Start 05/28/18 at 09:30 Glucose (Glutose) 15 gm Q15M PRN PO DECREASED GLUCOSE; Start 05/28/18 at 09:30 Glucose (Glutose) 22.5 gm Q15M PRN PO DECREASED GLUCOSE; Start 05/28/18 at 09:30 Dextrose (D50w Syringe) 25 ml Q15M PRN IV DECREASED GLUCOSE; Start 05/28/18 at 09:30 Dextrose (D50w Syringe) 50 ml Q15M PRN IV DECREASED GLUCOSE; Start 05/28/18 at 09:30 Glucagon (Glucagen) 1 mg Q15M PRN IM DECREASED GLUCOSE; Start 05/28/18 at 09:30 Glucose (Glutose) 15 gm Q15M PRN BUCCAL DECREASED GLUCOSE; Start 05/28/18 at 09:30 Metoprolol Tartrate (Lopressor) 50 mg BID PO Last administered on 05/30/18at 08:19; Admin Dose 50 MG; Start 05/28/18 at 11:00 Morphine Sulfate (morphine) 6 mg Q4H PRN PO SEVERE PAIN LEVEL 7-10; Start 05/28/18 at 11:00 Amlodipine Besylate (Norvasc) 5 mg DAILY PO Last administered on 05/30/18at 09:22; Admin Dose 5 MG; Start 05/30/18 at 09:00 JAYME CEVALLOS May 30, 2018 15:50
--- NOTE | 2018-05-30 18:43 | CONS ---
Consult Date/Type/Reason Admit Date/Time May 27, 2018 at 12:36 Initial Consult Date 05/29/18 Type of Consultation: Urology Reason for Consultation Left renal mass on ultrasound Requesting Provider: KAYDEN DUEÑAS Date/Time of Note DATE: 05/30/18 TIME: 18:38 Subjective The patient is feeling better the waldemar-cardiac window drain has been removed today. Objective Vitals Vital Signs Date Temp Pulse Resp B/P (MAP) Pulse Ox O2 O2 Flow FiO2 Time Delivery Rate 05/30/18 82 16 135/87 98 Room Air 18:00 (103) 05/30/18 97.5 16:00 05/29/18 21 21:00 05/28/18 15:25 Intake and Output 05/29/18 05/29/18 05/30/18 1515:00 23:00 07:00 IntakeIntake Total 540 ml 120 ml OutputOutput Total 400 ml 0 ml 500 ml BalanceBalance 140 ml 120 ml -500 ml Exam Patient is comfortable. The abdomen is soft. He underwent the MRI of the abdomen and pelvis. Results/Medications Result Diagram: 05/30/18 0510 05/30/18 0510 Results 24 hrs Laboratory Tests Test 05/29/18 20:49 05/30/18 05:07 05/30/18 05:10 05/30/18 08:16 Bedside Glucose 127 124 Hepatitis B Surface NEGATIVE Antigen Hepatitis C Antibody NEGATIVE White Blood Count 11.5 H Red Blood Count 5.10 Hemoglobin 14.2 Hematocrit 43.2 Mean Corpuscular Volume 84.7 Mean Corpuscular 27.8 L Hemoglobin Mean Corpuscular 32.9 Hemoglobin Concent Red Cell Distribution 13.4 Width Platelet Count 680 H Mean Platelet Volume 9.1 Immature Granulocytes % 0.400 Neutrophils % 79.0 H Lymphocytes % 10.8 L Monocytes % 9.5 Eosinophils % 0.1 Basophils % 0.2 Nucleated Red Blood 0.0 Cells % Immature Granulocytes # 0.050 H Neutrophils # 9.1 H Lymphocytes # 1.3 Monocytes # 1.1 H Eosinophils # 0.0 Basophils # 0.0 Nucleated Red Blood 0.0 Cells # Sodium Level 139 Potassium Level 4.1 Chloride Level 101 Carbon Dioxide Level 27 Anion Gap 11 Blood Urea Nitrogen 35 H Creatinine 1.18 Est Glomerular Filtrat Rate mL/min Glucose Level 122 Calcium Level 8.9 Magnesium Level 2.1 Test 05/30/18 11:52 05/30/18 17:01 Bedside Glucose 138 133 Medications Current Medications Colchicine (Colchicine) 0.6 mg BID PO Last administered on 05/30/18 08:19; Admin Dose 0.6 MG; Start 05/27/18 at 21:00 Lorazepam (Ativan) 0.5 mg Q8H PRN PO .ANXIETY; Start 05/27/18 at 13:30 Ondansetron HCl (Zofran Inj) 4 mg Q6H PRN IV NAUSEA/VOMITING; Start 05/27/18 at 13:30 Nitroglycerin (Nitroglycerin (Sl Tab) 0.4 Mg) 1 tab Q5M PRN SL .CHEST PAIN; Start 05/27/18 at 13:30 Acetaminophen (Tylenol Tab) 650 mg Q6H PRN PO .PAIN 1-3 OR TEMP Last administered on 05/27/18 17:46; Admin Dose 650 MG; Start 05/27/18 at 13:30 Zolpidem Tartrate (Ambien) 5 mg QHS PRN PO .INSOMNIA; Start 05/27/18 at 13:30 Docusate Sodium (Colace) 100 mg Q12H PO Last administered on 05/30/18 12:46; Admin Dose 100 MG; Start 05/27/18 at 13:30 Ceftriaxone Sodium 50 ml @ 100 mls/hr Q24H IVPB Last administered on 05/30/18 12:46; Admin Dose 100 MLS/HR; Start 05/27/18 at 13:30 Azithromycin 250 ml @ 250 mls/hr Q24H IVPB Last administered on 05/30/18 13:31; Admin Dose 250 MLS/HR; Start 05/27/18 at 13:30 Albuterol (Proventil 0.083% (Neb)) 1.25 mg Q2H RESP THERAPY PRN HHN sob, wheezing Last administered on 05/28/18 15:25; Admin Dose 1.25 MG; Start 05/27/18 at 13:30 Losartan Potassium (Cozaar) 100 mg DAILY PO Last administered on 05/30/18 08:19; Admin Dose 100 MG; Start 05/28/18 at 09:00 Cholecalciferol (Vitamin D) 1,000 unit DAILY PO Last administered on 3/9/19at 08:19; Admin Dose 1,000 UNIT; Start 05/28/18 at 09:00 Enalaprilat (Vasotec Iv) 1.25 mg Q6H PRN IV SBP>170; Start 05/27/18 at 23:00 Insulin Aspart (Novolog Insulin Pen) NOVOLOG *MILD* ALGORITHM WITH MEALS BEDTIME SC Last administered on 05/29/18at 17:37; Admin Dose 2 UNIT; Start 05/28/18 at 11:30 Prednisone (Prednisone) 30 mg ONCE ONCE PO ; Start 05/31/18 at 09:00; Stop 05/31/18 at 09:01 Prednisone (Prednisone) 20 mg ONCE ONCE PO ; Start 06/01/18 at 09:00; Stop 06/01/18 at 09:01 Prednisone (Prednisone) 10 mg ONCE ONCE PO ; Start 06/02/18 at 09:00; Stop 06/02/18 at 09:01 Miscellaneous Information 1 ea NOTE XX ; Start 05/28/18 at 09:30 Glucose (Glutose) 15 gm Q15M PRN PO DECREASED GLUCOSE; Start 05/28/18 at 09:30 Glucose (Glutose) 22.5 gm Q15M PRN PO DECREASED GLUCOSE; Start 05/28/18 at 09:30 Dextrose (D50w Syringe) 25 ml Q15M PRN IV DECREASED GLUCOSE; Start 05/28/18 at 09:30 Dextrose (D50w Syringe) 50 ml Q15M PRN IV DECREASED GLUCOSE; Start 05/28/18 at 09:30 Glucagon (Glucagen) 1 mg Q15M PRN IM DECREASED GLUCOSE; Start 05/28/18 at 09:30 Glucose (Glutose) 15 gm Q15M PRN BUCCAL DECREASED GLUCOSE; Start 05/28/18 at 09:30 Metoprolol Tartrate (Lopressor) 50 mg BID PO Last administered on 05/30/18at 08:19; Admin Dose 50 MG; Start 05/28/18 at 11:00 Morphine Sulfate (morphine) 6 mg Q4H PRN PO SEVERE PAIN LEVEL 7-10; Start 05/28/18 at 11:00 Amlodipine Besylate (Norvasc) 5 mg DAILY PO Last administered on 05/30/18at 09:22; Admin Dose 5 MG; Start 05/30/18 at 09:00 Assessment/Plan Hospital Course (Demo Recall) 77-year-old male referred to the emergency department from his program director [employer] for evaluation of a pericardial effusion. Patient was seen initially in an outside urgent care for shortness of breath where he had a chest x-ray done demonstrating a large heart. He followed up with a local program director [employer] who demonstrated he had a significant pericardial effusion. The patient underwent Pericardiocentesis. Renal ultrasound was done and that showed a 2 cm hypoechoic mass in the lower pole of the left kidney suspicious for malignant lesion therefore a urological consultation was requested. The patient denies any prior history of kidney disease. There is no history of hematuria. No history of kidney stones. His medical doctor has referred him to a urologist which he does not remember the name because of enlarged prostate. Because of the mass in the lower pole of the left kidney patient underwent an MRI: No evidence of abdominal mass, lymphadenopathy or acute inflammatory pathology. Specifically, no evidence of renal mass. Scattered tiny T1 hyperintense foci within the kidneys compatible with tiny hemorrhagic/proteinaceous cysts. Small moderate residual pericardial effusion, mildly decreased when correlated with prior CT chest. Urologically just observe. The patient should follow-up with his primary care physician and the primary care physician has to refer him to a urologist and may repeat the ultrasound may be in about 6 months to recheck the mass in the left kidney. BARRON BOLDEN MD May 30, 2018 18:43
[2018-05-31] VITALS (11 sets, daily range): BP systolic 125–165; BP diastolic 65–100; PULSE 60–83; RESP 18–22
[2018-05-31] MEDS: DOCUSATE SODIUM 100 MG CAP PO SCH (01:25)
[2018-05-31] MEDS: INSULIN ASPART [NOVOLOG] 3 ML PEN SC SCH (07:35)
--- NOTE | 2018-05-31 08:27 | DS ---
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 Middleton is a very pleasant 77-year-old male with a past medical history of high blood pressure, prediabetes and GERD, who has been having worsening dyspnea on exertion, shortness of breath and cough and his family also notices voice changes over the last 3 weeks. The patient also has a history of asthma and actually feels like it is happening the bronchitis episodes right now. 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 He went into see the batch plant supervisor yesterday, Dr. Humphries and then 2D echo was done at that time with concerns for pericardial effusion, so the patient was requested to come to the emergency room for placement of emergent pericardial window. The procedure is already scheduled today between 1:00 and 2:00 p.m. The patient is being admitted for this reason. He however denies fever. He has been having a lot of cough that is occasional productive of whitish sputum. He denies chest pain at this time. Denies passing out episodes. No extremity swelling. No dizziness. There is no abdominal pain, no nausea or vomiting. Last bowel movement was this morning without blood and was not black and per patient, it was normal. He also denies dysuria or hematuria. 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 He had a prior CXR showing severe cardiomegaly and in my office EKG shows low voltage and echo showed a large pericardial effusion with pre-tamponade physiology. No clinical tamponade. He was referred for admission and pericardiocentesis. No known malignancy or recent viral infection.No chest pain per hPI Hospital Course Ceci 77-year-old gentleman admitted with pericardial effusion with cardiac tamponade. He underwent pericardiocentesis and careful observation follow-up. Cytologies were negative cultures were negative. Cardiology believes that this is a postviral pericarditis effusion. He is now stabilized and doing well and is appropriate for discharge home. He will follow-up with cardiology in 1 week. In the course of his workup an abdominal ultrasound identified a renal mass a 2 cm. Follow-up imaging with MRI scan did not identify this. In addition regarding his benign prostatic hypertrophy he had a postvoid residual of 19 cc. Follow-up Plan Cardiology in 1 week MO: Primary care in 2 weeks Primary Care Provider Care Physician No Primary Time spent on discharge: > 30 minutes Pending Labs Laboratory Tests Test 05/30/18 11:52 05/30/18 17:01 05/30/18 21:04 05/31/18 04:47 Bedside 138 133 148 Glucose mg/dL (70-220) mg/dL (70-220) mg/dL (70-220) White Blood 9.1 Count 10^3/ul (4.8-1 0.8) Red Blood 5.17 Count 10^6/ul (4.70- 6.10) Hemoglobin 14.4 g/dl (14.0-18. 0) Hematocrit 44.1 % (42.0-52.0) Mean 85.3 Corpuscular fl (82.0-101.0 Volume ) Mean 27.9 Corpuscular pg (29.0-33.0) Hemoglobin Mean 32.7 Corpuscular g/dl (32.0-37. Hemoglobin Conc 0) ent Red Cell 13.4 Distribution % (11.5-14.5) Width Platelet Count 644 10^3/UL (140-4 15) Mean Platelet 9.0 Volume fl (7.4-10.4) Immature 0.700 Granulocytes % % (0.001-0.429 ) Neutrophils % 74.2 % (39.0-77.0) Lymphocytes % 14.9 % (15.0-51.0) Monocytes % 9.9 % (0.0-11.0) Eosinophils % 0.1 % (0.0-7.0) Basophils % 0.2 % (0.0-2.0) Nucleated Red 0.0 Blood Cells % /100WBC (0.0-0 .0) Immature 0.060 Granulocytes # 10^3/ul (0.0-0 .031) Neutrophils # 6.8 10^3/ul (1.6-7 .5) Lymphocytes # 1.4 10^3/ul (0.8-2 .9) Monocytes # 0.9 10^3/ul (0.3-0 .9) Eosinophils # 0.0 10^3/ul (0.0-0 .5) Basophils # 0.0 10^3/ul (0.0-0 .1) Nucleated Red 0.0 Blood Cells # 10^3/ul (0.0-0 .0) Sodium Level 141 mmol/L (135-14 4) Potassium 4.0 Level mmol/L (3.5-5. 1) Chloride Level 103 mmol/L (97-110 ) Carbon Dioxide 29 Level mmol/L (21-31) Anion Gap 9 (5-13) Blood Urea 30 Nitrogen mg/dl (7-20) Creatinine 1.11 mg/dl (0.61-1. 24) Est Glomerular mL/min (>60) Filtrat Rate mL/min Glucose Level 121 mg/dl (70-220) Calcium Level 8.9 mg/dl (8.4-10. 2) Test 05/31/18 07:51 Bedside 94 Glucose mg/dL (70-220) Copies To: CC: JAYME HUMPHRIES ; EDILMA MENDOZA MD May 31, 2018 08:27
--- NOTE | 2018-05-31 08:28 | PDOCDIS ---
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
[2018-05-31] MEDS ORDERED: CHOL100062 PO (08:31)
[2018-05-31] MEDS ORDERED: AMLO-145 PO (08:31)
[2018-05-31] MEDS ORDERED: LOSA50TA2 PO (08:31)
[2018-05-31] MEDS ORDERED: METO-429 PO (08:31)
[2018-05-31] MEDS ORDERED: Colchicine PO (08:31)
[2018-05-31] MEDS ORDERED: predniSONE 10 MG TAB PO ONE (09:00)
[2018-05-31] MEDS: COLCHICINE 0.6 MG TAB PO SCH (09:40)
[2018-05-31] MEDS: METOPROLOL 50 MG TAB PO SCH (09:41)
[2018-05-31] MEDS: CHOLECALCIFEROL 1,000 UNIT TAB PO SCH (09:41)
[2018-05-31] MEDS: AMLODIPINE 5 MG TAB PO SCH (09:41)
[2018-05-31] MEDS: LOSARTAN 50 MG TAB PO SCH (09:42)
[2018-06-01] MEDS ORDERED: predniSONE 20 MG TAB PO ONE (09:00)
[2018-06-02] MEDS ORDERED: predniSONE 10 MG TAB PO ONE (09:00)
== END 2018-05-31 10:12 | disposition home or self-care (01) | DRG 314 ==
LOC: E/R 10:43 → REC 12:36 → ICU 13:11
PROVIDERS: ADMIT Family Medicine; ATTEND Family Medicine
PROC: 0W9D30Z Drainage of Pericardial Cavity with Drainage Device, Percutaneous Approach (ICD-10-PCS; principal; 2018-05-27 13:00)
DX: I31.3 Pericardial effusion (noninflammatory) (principal); I50.31 Acute diastolic (congestive) heart failure; J18.9 Pneumonia, unspecified organism; J45.901 Unspecified asthma with (acute) exacerbation; I31.4 Cardiac tamponade; I11.0 Hypertensive heart disease with heart failure; R73.03 Prediabetes; K21.9 Gastro-esophageal reflux disease without esophagitis; Z22.322 Carrier or suspected carrier of Methicillin resistant Staphylococcus aureus; Z87.891 Personal history of nicotine dependence; M10.9 Gout, unspecified; D50.8 Other iron deficiency anemias; J40 Bronchitis, not specified as acute or chronic; N28.89 Other specified disorders of kidney and ureter; I48.91 Unspecified atrial fibrillation
CPT/HCPCS: 33010; 36415; 71045; 71260; 72196; 72197; 74018; 74183; 76700; 80048; 80061; 82652; 82945; 82962; 83036; 83615; 83735; 84100; 84157; 84443; 84484; 84560; 85025; 86038; 86480; 86803; 87070; 87081; 87102; 87116; 87205; 87340; 88104; 88107; 88305; 89051; 90686; 93005; 93306; 93308; 94640; 94664; J0456; J0696; J1815; J1940; J2250; J2270; J2920; J3010; J7040; J7512; Q9967